=== PATIENT | male | born 1940 | race Caucasian/White ===

== ENCOUNTER 2020-10-14 08:02 | Outpatient (REF) | payer MEDICARE, OTHER, SELFPAY ==
[2020-10-14 10:14] LABS: MANUAL DIFF FLAG NO
[2020-10-14 10:18] LABS: Basophils Absolute Auto 0.1 X10*3/uL (0.0-0.2); Eosinophils Absolute Auto 0.2 X10*3/uL (0.0-0.4); Eosinophils Percent Auto 3.8 % (0-4); Hematocrit 40.3 % (42-52); Hemoglobin 13.8 g/dl (14.0-18.0); Imm Gran Abs Auto 0.03 X10*3/uL (0.00-0.03); Imm Gran Pct Auto 0.6 % (0.0-0.4); Lymphocytes Absolute Auto 1.2 X10*3/uL (1.2-4.9); Lymphocytes Percent Auto 22.3 % (20-40); Mean Corpuscular HGB Conc 34.2 g/dl (31.0-36.0); Mean Corpuscular Hemoglobin 32.7 pg (27.0-33.0); Mean Corpuscular Volume 95.5 fL (80-98); Mean Platelet Volume 10.1 fL (9.4-12.4); Monocytes Absolute Auto 0.6 X10*3/uL (0.1-1.2); Monocytes Percent Auto 10.7 % (2-11); Neutrophils Absolute Auto 3.2 X10*3/uL (2.0-8.3); Neutrophils Percent Auto 61.6 % (45-73); Platelet Count 209 X10*3/uL (160-400); Red Blood Count 4.22 X10*6/uL (4.60-5.80); Red Cell Distribution Width 12.7 % (11.0-16.0); White Blood Count 5.2 X10*3/uL (4.8-10.8)
[2020-10-14 10:44] LABS: Glucose Urine UA NEG (NEG); Leukocyte Esterase Urine NEG (NEG); Nitrite Urine NEG (NEG); PH 6.5 (5.0-8.0); Specific Gravity - Urine 1.025 (1.005-1.025); Urine Blood NEG (NEG); Urine Ketones NEG (NEG); Urine Protein NEG (NEG-TRACE)
[2020-10-14 10:49] LABS: Appearance Urine CLEAR; Color Urine YELLOW
[2020-10-14 10:54] LABS: Alanine Aminotransferase 25 U/L (0-40); Albumin Level 4.1 g/dL (3.5-5.0); Alkaline Phosphatase 140 U/L (39-117); Anion Gap 12 (12-20); Aspartate Amino Transferase 21 U/L (5-37); Bilirubin Total 0.7 mg/dL (0.0-1.0); Blood Urea Nitrogen 22 mg/dL (9-16); Calcium 8.5 mg/dL (8.4-10.2); Carbon Dioxide 29 mmol/L (22-29); Chloride 102 mmol/L (96-108); Cholesterol 177 mg/dL; Estimated Glomerular Filt Rate > 60; Glucose Fasting 89 mg/dL (60-99); HDL Cholesterol 45 mg/dL; LDL Cholesterol Calculated 116 mg/dl; Potassium 4.2 mmol/l (3.3-5.1); Sodium 139 mmol/L (135-145); Total Protein 6.4 g/dL (6.5-8.0); Triglycerides 81 mg/dL
[2020-10-14 11:15] LABS: Prostate Specific Antigen Scr 0.24 ng/mL (<0.05-4.0)
== END 2020-10-14 08:03 | disposition home or self-care (01) ==
LOC: HO.10HDL 08:02
PROVIDERS: Visit Provider Internal Medicine
DX: I10 Essential (primary) hypertension (principal); N40.0 Benign prostatic hyperplasia without lower urinary tract symptoms; K21.9 Gastro-esophageal reflux disease without esophagitis; D64.9 Anemia, unspecified; Z12.5 Encounter for screening for malignant neoplasm of prostate
CPT/HCPCS: 36415; 80053; 80061; 81003; 84153; 85025

== ENCOUNTER 2021-01-07 07:48 | Outpatient (REF) | payer MEDICARE, OTHER, SELFPAY ==
--- NOTE | ~2021-01-07 | XR_ITS ---
EXAMINATION: XR knee standing BI, XR knee RT 2V CLINICAL INFORMATION: Reason for Exam M25.561 - Pain in right knee COMPARISON: 2018 TECHNIQUE: Bilateral frontal standing, right lateral and patella sunrise view. FINDINGS: BONES: No fracture or dislocation is present. JOINTS: Narrowing of joint spaces and developed osteophytes from the edges of articular surfaces suggest degenerative osteoarthritis. 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 No joint effusion.
--- NOTE | ~2021-01-07 | XR_ITS ---
EXAMINATION: XR knee standing BI, XR knee RT 2V CLINICAL INFORMATION: Reason for Exam M25.561 - Pain in right knee COMPARISON: 2018 TECHNIQUE: Bilateral frontal standing, right lateral and patella sunrise view. FINDINGS: BONES: No fracture or dislocation is present. JOINTS: Narrowing of joint spaces and developed osteophytes from the edges of articular surfaces suggest degenerative osteoarthritis. 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 No joint effusion.
== END 2021-01-07 07:49 | disposition home or self-care (01) ==
LOC: HO.HOSX 07:48
PROVIDERS: Visit Provider Orthopaedic Surgery
DX: M22.2X1 Patellofemoral disorders, right knee (principal)
CPT/HCPCS: 20610; 73560; 73565; 99212; J1040

== ENCOUNTER 2021-04-25 10:41 | Outpatient (REF) | payer MEDICARE, OTHER, SELFPAY ==
[2021-04-25 11:37] LABS: MANUAL DIFF FLAG NO
[2021-04-25 11:48] LABS: Basophils Absolute Auto 0.1 X10*3/uL (0.0-0.2); Eosinophils Absolute Auto 0.2 X10*3/uL (0.0-0.4); Eosinophils Percent Auto 3.3 % (0-4); Hematocrit 40.5 % (42-52); Hemoglobin 13.6 g/dl (14.0-18.0); Imm Gran Abs Auto 0.01 X10*3/uL (0.00-0.03); Imm Gran Pct Auto 0.2 % (0.0-0.4); Lymphocytes Absolute Auto 1.3 X10*3/uL (1.2-4.9); Lymphocytes Percent Auto 25.2 % (20-40); Mean Corpuscular HGB Conc 33.6 g/dl (31.0-36.0); Mean Corpuscular Hemoglobin 31.8 pg (27.0-33.0); Mean Corpuscular Volume 94.6 fL (80-98); Mean Platelet Volume 10.4 fL (9.4-12.4); Monocytes Absolute Auto 0.6 X10*3/uL (0.1-1.2); Monocytes Percent Auto 11.6 % (2-11); Neutrophils Percent Auto 58.7 % (45-73); Platelet Count 221 X10*3/uL (160-400); Red Blood Count 4.28 X10*6/uL (4.60-5.80); Red Cell Distribution Width 13.1 % (11.0-16.0); White Blood Count 5.1 X10*3/uL (4.8-10.8)
[2021-04-25 12:57] LABS: Alanine Aminotransferase 17 U/L (0-40); Albumin Level 4.3 g/dL (3.5-5.0); Alkaline Phosphatase 136 U/L (39-117); Anion Gap 12 (12-20); Aspartate Amino Transferase 20 U/L (5-37); Bilirubin Total 0.8 mg/dL (0.0-1.0); Blood Urea Nitrogen 22 mg/dL (9-16); Calcium 9.3 mg/dL (8.4-10.2); Carbon Dioxide 28 mmol/L (22-29); Chloride 104 mmol/L (96-108); Estimated Glomerular Filt Rate > 60; Glucose Fasting 66 mg/dL (60-99); Potassium 4.4 mmol/L (3.3-5.1); Sodium 140 mmol/L (135-145); Total Protein 6.7 g/dL (6.5-8.0)
== END 2021-04-25 10:42 | disposition home or self-care (01) ==
LOC: HO.LAB 10:41
PROVIDERS: PCP Internal Medicine; Visit Provider Internal Medicine
DX: I10 Essential (primary) hypertension (principal); M81.0 Age-related osteoporosis without current pathological fracture
CPT/HCPCS: 36415; 80053; 85025

== ENCOUNTER 2021-10-27 09:50 | Outpatient (REF) | payer MEDICARE, OTHER, SELFPAY ==
[2021-10-27 10:35] LABS: MANUAL DIFF FLAG NO
[2021-10-27 10:43] LABS: Basophils Percent Auto 0.9 % (0-2); Eosinophils Absolute Auto 0.1 X10*3/uL (0.0-0.4); Eosinophils Percent Auto 2.6 % (0-4); Hematocrit 40.6 % (42.0-52.0); Hemoglobin 13.5 g/dl (14.0-18.0); Imm Gran Abs Auto 0.03 X10*3/uL (0.00-0.03); Imm Gran Pct Auto 0.6 % (0.0-0.4); Mean Corpuscular HGB Conc 33.3 g/dl (31.0-36.0); Mean Corpuscular Hemoglobin 32.1 pg (27.0-33.0); Mean Corpuscular Volume 96.7 fL (80.0-98.0); Mean Platelet Volume 10.6 fL (9.4-12.4); Monocytes Absolute Auto 0.5 X10*3/uL (0.1-1.2); Monocytes Percent Auto 10.6 % (2-11); Neutrophils Absolute Auto 2.9 x10*3/uL (2.0-8.3); Neutrophils Percent Auto 63.3 % (45-73); Platelet Count 189 X10*3/uL (160-400); White Blood Count 4.6 X10*3/uL (4.8-10.8)
[2021-10-27 11:05] LABS: Alanine Aminotransferase 19 U/L (0-40); Alkaline Phosphatase 161 U/L (39-117); Anion Gap 9 (12-20); Aspartate Amino Transferase 20 U/L (5-37); Bilirubin Total 0.7 mg/dL (0.0-1.0); Blood Urea Nitrogen 20 mg/dL (9-16); Calcium 9.1 mg/dL (8.4-10.2); Carbon Dioxide 30 mmol/L (22-29); Chloride 107 mmol/L (96-108); Cholesterol 147 mg/dL; Estimated Glomerular Filt Rate > 60; Glucose Random 78 mg/dL (60-115); Potassium 4.4 mmol/L (3.3-5.1); Sodium 142 mmol/L (135-145); Total Protein 6.3 g/dL (6.5-8.0)
[2021-10-27 11:32] LABS: Prostate Specific Antigen 0.21 ng/mL (<0.05-4.0)
== END 2021-10-27 09:51 | disposition home or self-care (01) ==
LOC: HO.10HDL 09:50
PROVIDERS: Visit Provider Internal Medicine
DX: I10 Essential (primary) hypertension (principal); K21.9 Gastro-esophageal reflux disease without esophagitis; R35.1 Nocturia; Z12.5 Encounter for screening for malignant neoplasm of prostate
CPT/HCPCS: 36415; 80053; 82465; 84153; 85025

== ENCOUNTER 2021-11-01 09:21 | Outpatient (REF) | payer MEDICARE, OTHER, SELFPAY ==
--- NOTE | ~2021-11-01 | XR_ITS ---
EXAMINATION: XR HIP, LEFT CLINICAL INFORMATION: Left hip pain. COMPARISON: None TECHNIQUE: AP and frog-leg lateral views of the left hip. FINDINGS: No fracture or malalignment. No aggressive osseous lesions are identified. Left hip joint appears relatively well-preserved. Pubic symphysis and SI joints are normal in appearance. Mild degenerative spondylosis in the lower lumbar spine. XR/XR hip LT min 2V IMPRESSION: No acute osseous findings in the left hip. Left hip joint appears relatively well-preserved without focal abnormalities correlate with the patient's symptoms.
== END 2021-11-01 09:22 | disposition home or self-care (01) ==
LOC: HO.XRAY 09:21
PROVIDERS: PCP Internal Medicine; Visit Provider Internal Medicine
DX: M25.552 Pain in left hip (principal)
CPT/HCPCS: 73502

== ENCOUNTER 2021-12-22 07:59 | Outpatient (REF) | payer MEDICARE, OTHER, SELFPAY ==
--- NOTE | ~2021-12-22 | CT_ITS ---
EXAMINATION: CT ABDOMEN AND PELVIS WITHOUT CONTRAST CLINICAL INFORMATION: Lower abdominal pain. Evaluate for hernia. COMPARISON: None TECHNIQUE: Multidetector volumetric imaging was performed from the superior aspect of the liver through the pubic symphysis. Sagittal and coronal reformatted images were obtained on the technologist's workstation. This CT examination was performed using dose optimization techniques as appropriate, variously including the following: *Automated exposure control *Adjustment of mA and/or kV according to patient size (this includes techniques or standardized protocols for targeted exams where dose is matched to indication/reason for exam; i.e. extremities or head) *Use of iterative reconstruction technique DLP: 493 mGy-cm FINDINGS: LUNG BASES: The visualized lung bases are unremarkable. LIVER, GALLBLADDER, AND BILIARY TREE: The liver is normal in size, shape, and attenuation. There is a 1 cm low-attenuation lesion in the lateral segment of the left lobe of the liver. There is no biliary duct dilatation. The gallbladder is unremarkable with no evidence of radiopaque gallstones, gallbladder wall thickening, or obvious pericholecystic inflammatory changes. PANCREAS: Unremarkable. SPLEEN: There are calcifications in the spleen suggestive of old granulomatous disease. ADRENAL GLANDS: Unremarkable. KIDNEYS AND URETERS: The kidneys are normal in size, shape, and attenuation. No hydronephrosis, hydroureter, or calculi seen. No perinephric stranding. BLADDER: Unremarkable. GASTROINTESTINAL TRACT: There is diverticulosis of the colon. The small and large bowel are otherwise unremarkable. The appendix is is not seen. There are no laboratory change is right lower quadrant. The stomach is normal. ABDOMINAL WALL: There is a left inguinal hernia containing fat. LYMPH NODES: Normal. VASCULAR: Unremarkable. PELVIC VISCERA: Unremarkable. OSSEOUS STRUCTURES: There is a 5 mm sclerotic density in the right inferior pubic ramus. CT/CT abdomen pelvis wo con IMPRESSION: Left inguinal hernia containing fat. Mild diverticulosis. No evidence of diverticulitis. 1 cm low-attenuation liver lesion. This is difficult to characterize due to size and lack of IV contrast. Calcifications in the spleen suggestive of old granulomatous disease. Fleischner guidelines were followed.
== END 2021-12-22 08:00 | disposition home or self-care (01) ==
LOC: HO.CT 07:59
PROVIDERS: Visit Provider Internal Medicine
DX: R10.32 Left lower quadrant pain (principal)
CPT/HCPCS: 74176

== ENCOUNTER → 2022-02-22 13:14 | Outpatient (BNVA) | payer MEDICARE, OTHER, SELFPAY | PROVIDERS: PCP Internal Medicine; Visit Provider Surgery | DX: K40.90 Unilateral inguinal hernia, without obstruction or gangrene, not specified as recurrent (principal) | CPT/HCPCS: 99212 ==

== ENCOUNTER → 2022-03-31 07:22 | Day surgery (SDC) | payer MEDICARE, OTHER, SELFPAY ==
--- NOTE | 2022-03-29 13:39 | HO.ANESPROP2 ---
HPI - Anesthesia Eval Consult details Narrative: HTN preop. Cx'd and instructed to f/u with PCP 81yo M for Left Hernia Repair Inguinal possible mesh PMFSH Active Problems Active Problems: All Active Problems (Updated 02/22/22 @ 13:52 by Aquiles Marcial MD) Left inguinal hernia (Acute) Hypertension (Acute) Patellofemoral pain syndrome of right knee (Acute) Past Medical History Medical History (Updated 03/29/22 @ 13:41 by Kiana Roque NP) GERD (gastroesophageal reflux disease) Hypertension Left inguinal hernia Lipoma of abdominal wall Lipoma of back Osteoarthritis Family History Family History Father CVD (cardiovascular disease) Mother CVD (cardiovascular disease) Hypertension Surgical History Surgical History H/O hernia repair History of appendectomy Hx of tonsillectomy Status post excision of lipoma Social History Social History Patient Tobacco Use Status: Never used Tobacco Second Hand Smoke Exposure: No Use of substances other than those prescribed or required for medical reasons: No Are you DNR?: No Advance Directives: No Advance Directives Information Provided: Yes Advance Directives on File: No Current occupational status: retired Current occupation: right handed Meds Allergies Allergy/AdvReac Type Severity Reaction Status Date / Time Penicillins [PENICILLINS] Allergy Intermediate RASH Verified 03/31/22 10:31 Home Medications Medication Instructions Recorded Confirmed Last Taken Type losartan 25 mg tablet 25 mg PO DAILY 01/07/21 02/22/22 Unknown History naproxen sodium 220 mg tablet 220 mg PO Q12H 01/07/21 02/22/22 Unknown History (Aleve) omeprazole 10 mg capsule,delayed 10 mg PO DAILY 01/07/21 02/22/22 Unknown History release Exam Exam Date and Time: March 29, 2022 1339 Pertinent Lab Results Pertinent Lab Results: Laboratory Tests 10/27/21 10/27/21 09:52 09:52 WBC 4.6 L Hgb 13.5 L Hct 40.6 L Plt Count 189 Sodium 142 Potassium 4.4 Chloride 107 Carbon Dioxide 30 H BUN 20 H Creatinine 1.01 Assessment and Plan Assessment Anesthesia Assessment: Chart Reviewed
[2022-03-31 08:28] VITALS: BMI 25.7
[2022-03-31 08:54] VITALS: BP 200/87; PULSE 52; RESP 16; TEMP 36.1; O2SAT 98
[2022-03-31] MEDS: Lactated Ringers 1,000 ML 100 ML IVCONT (09:30)
--- NOTE | 2022-03-31 09:51 | PC.NURSE ---
Addendum entered by Tapan Michel RN 03/31/22 13:20: pt medicated with Versed at 1030. BP decreased to 170-180's. pt BP noted to be elevated at 1315 back in the 200's. Dr. Hightower and Dr. Marcial at bedside. pt informed procedure will be cancelled today and to follow up with PCP concerning HTN. pt dressing. IV removed and intact. Original Note: pt BP elevated upon arrival, 213/80. BP taken multiple times, all reading SBP 200's. Dr. Hightower notified via [employer]. orders received to cycle Q15min BP.
--- NOTE | 2022-03-31 10:04 | PC.NURSE ---
pharmacy called to verify Cefazolin abx order as pt has listed allergy to pcn. verified reaction of rash with patient. Dr. Marcial aware and wants to proceed with Cefazolin 2gm IV preop.
--- NOTE | 2022-03-31 12:57 | MHC.SHP ---
Pre-Procedural Eval Section A Date of Service: 03/31/22 Section B Chief Complaint: hernia Details of Present Illness: Has a symptomatic eft inguinal hernia reducible Relevant Family History (Specify if Yes): No Relevant Social History: None Present Medications: see Short Stay Collaborative assessment Medical History: Significant History History of Previous Operations: No relevant previous surgery Allergies: Allergies Allergy/AdvReac Type Severity Reaction Status Date / Time Penicillins [PENICILLINS] Allergy Intermediate RASH Verified 03/31/22 10:31 Review of Systems Sugical H&P ROS: Negative: Constitution, Cardiovascular, Respiratory, Neurological, Psychiatric, Hem-Onc, Allergic/Immunologic, Gastrointestinal, Genitourinary, Musculoskeletal, Integumentary, Endocrine and Eyes/Ears/Nose/Throat Exam Surgical H&P Exam: Normal: HEENT, Normal: Heart, Normal: Lungs, Normal: Extremities, Normal: Skin and Normal: Neurological and Significant Findings: Abdomen (Left inguinal hernia, reducible) Plan I have reviewed the history and physical and performed a pertinent physical examination on my patient. No changes have occurred unless specified.
== END ==
PROVIDERS: PCP Internal Medicine; Visit Provider Surgery
DX: K40.90 Unilateral inguinal hernia, without obstruction or gangrene, not specified as recurrent (principal); Z53.09 Procedure and treatment not carried out because of other contraindication; I10 Essential (primary) hypertension
CPT/HCPCS: J0690

== ENCOUNTER 2022-04-25 08:28 | Day surgery (SDC) | payer MEDICARE, OTHER, SELFPAY ==
[2022-04-25] VITALS (9 sets, daily range): BP systolic 168–195; BP diastolic 79–94; PULSE 64–75; RESP 10–18; TEMP 36.2–36.9; O2SAT 95–99; BMI 25.7
--- NOTE | 2022-04-25 08:53 | MHC.SHP ---
Pre-Procedural Eval Section A Date of Service: 04/25/22 Section B Chief Complaint: hernia Details of Present Illness: Has reducible mass on the left groin Relevant Family History (Specify if Yes): No Relevant Social History: None Present Medications: see Short Stay Collaborative assessment Medical History: Significant History ( hypertension) Allergies: Allergies Allergy/AdvReac Type Severity Reaction Status Date / Time Penicillins [PENICILLINS] Allergy Intermediate RASH Verified 03/31/22 10:31 Review of Systems Sugical H&P ROS: Negative: Constitution, Cardiovascular, Respiratory, Neurological, Psychiatric, Hem-Onc, Allergic/Immunologic, Gastrointestinal, Genitourinary, Musculoskeletal, Integumentary, Endocrine and Eyes/Ears/Nose/Throat Exam Surgical H&P Exam: Normal: HEENT, Normal: Heart, Normal: Lungs, Normal: Extremities, Normal: Skin and Normal: Neurological and Significant Findings: Abdomen ( left inguinal hernia reducible) Plan Diagnosis/Plan: Unchanged I have reviewed the history and physical and performed a pertinent physical examination on my patient. No changes have occurred unless specified.
--- NOTE | 2022-04-25 09:01 | P.CONAN_ITS ---
[facility] Active Problems Active Problems: All Active Problems (Updated 03/29/22 @ 13:41 by Kiana Roque NP) Left inguinal hernia (Acute) Hypertension (Acute) Patellofemoral pain syndrome of right knee (Acute) Past Medical History Medical History (Updated 03/29/22 @ 13:41 by Kiana Roque NP) GERD (gastroesophageal reflux disease) Hypertension Left inguinal hernia Lipoma of abdominal wall Lipoma of back Osteoarthritis Family History Family History Father CVD (cardiovascular disease) Mother CVD (cardiovascular disease) Hypertension Family history of problems with anesthesia: No Surgical History Surgical History H/O hernia repair History of appendectomy Hx of tonsillectomy Status post excision of lipoma History of Problems with Anesthesia: No Social History Social History Patient Tobacco Use Status: Never used Tobacco Second Hand Smoke Exposure: No Use of substances other than those prescribed or required for medical reasons: No Are you DNR?: No Advance Directives: No Advance Directives Information Provided: Yes Advance Directives on File: No Current occupational status: retired Current occupation: right handed Meds Allergies Allergy/AdvReac Type Severity Reaction Status Date / Time Penicillins [PENICILLINS] Allergy Intermediate RASH Verified 03/31/22 10:31 Home Medications Medication Instructions Recorded Confirmed Last Taken Type losartan 25 mg tablet 25 mg PO DAILY 01/07/21 02/22/22 04/25/22 History naproxen sodium 220 mg tablet 220 mg PO Q12H 01/07/21 02/22/22 Unknown History (Aleve) omeprazole 10 mg capsule,delayed 10 mg PO DAILY 01/07/21 02/22/22 Unknown History release Exam Exam Date and Time: April 25, 2022900 Height,Weight and Vital Signs: Height 6 ft Weight 86.183 kg Last Vital Signs Temp 98.5 F 04/25/22 08:56 Pulse 65 04/25/22 08:56 Resp 16 04/25/22 08:56 BP 195/88 H 04/25/22 08:56 Pulse Ox 99 04/25/22 08:56 O2 Del Method 04/25/22 08:56 Airway Mallampati Class: II TM Dist: >3cm Neck ROM: Full Assessment and Plan Assessment Anesthesia Assessment: Anesthesia Plan Discussed and Chart Reviewed Final Anesthetic Review Family History of Problems with Anesthesia: No History of Problems with Anesthesia: No NPO: Yes ASA Class: II Final Preanesthetic Review: No Changes in Pt Med Stat, Meds/Allgs Chart Reviewed, Consent Obtained/Reviewed and Anes Risks/Benef Reviewed Patient Risk: Intermediate Procedure Risk: Intermediate Anesthetic Plan Anesthetic Plan: GA Disposition: Standard PACU
[2022-04-25] MEDS: Lactated Ringers 1,000 ML 100 ML IVCONT (09:17)
--- NOTE | 2022-04-25 11:06 | W.PM.OPN ---
Operative Note Operative Note Date of Service: 04/25/22 Narrative: Preop diagnosis: Left inguinal hernia Postop diagnosis: Left inguinal hernia, indirect Procedure: Repair of a left inguinal hernia with mesh Surgeon: Aquiles Marcial MD assistant fitness manager: MIGUEL Alexandra The patient is an 82-year-old male with a reducible mass on left groin consistent with left inguinal hernia. He understood the technique of repair with mesh. He was aware of the risks, benefits, and alternatives Was brought to the operating room placed supine under general anesthesia via endotracheal tube. The left groin was prepped and draped in the usual sterile fashion. A surgical time-out was done. The patient received cefazolin 2 g IV preoperatively. I infiltrated the planned line of incision with lidocaine 1%. I made a short incision on the skin along an imaginary line from the anterior superior iliac spine to the pubic ramus using blade 15. This carried down through the full-thickness of the skin subcutaneous fat with electrocautery until I was well lysed the final oblique aponeurosis. I bluntly dissected the external oblique aponeurosis to identify the external ring. Once this was achieved, I proceeded to then make an incision on the external oblique aponeurosis using blade 15. And extended this inferomedially to connect with the external ring. The inguinal canal was therefore entered. I applied hemostats to the divided edges of the aponeurosis. I bluntly dissected the underside of the aponeurosis to create a pocket for the mesh. I then proceeded to gently dissect the spermatic cord and its contents using my index finger until was able to pass a [place] drain around this. This [place] drain was used for retraction. I identified the vas deferens and accompanying vessels and these were protected during the rest of the dissection. Identified a containing hernia on the anteromedial aspect of the cord. The hernia sac was identified I proceeded to gently separate this from the rest of the cord contents until I was able to completely reduce this with the internal ring. This was therefore an indirect hernia. I reinforced the internal ring with the large size Prolene plug. The plug was secured with Prolene 2 sutures to shelving edge of the inguinal meant laterally, the internal oblique superiorly medially, using the inner leaves of the plug . I then reinforced the floor of the canal with a keyhole mesh. The tails of the mesh were passed around the cord at the level of the internal ring and were secured together with Prolene 2 sutures. I flattened the mesh on the floor of the canal. I secured this with Prolene to suture to shelving edge of the ligament laterally, the internal oblique superiorly medially as well as the pubic ramus inferomedially. I copiously irrigated. I observed for hemostasis. Once hemostasis was confirmed, I removed the [place] drain. I closed the oblique aponeurosis with a running Dexon 2-0 stitch to re-create the external ring. I reapposed the subcutaneous layer with Dexon 3-0 interrupted sutures. Skin closure was used with Dexon 4-0 subcuticular running stitch. The incision was infiltrated with Marcaine 0.5% for postop analgesia. Steri-Strips and dressings were applied. The procedure was completed The patient tolerated procedure well. There were no complication noted. Initial and final counts of sponges and instruments were correct. Estimated blood loss was about less than 10 cc . The patient was extubated without difficulty and transferred to the recovery room with stable vital signs.
[2022-04-25] MEDS: oxyCODONE HCl Immed Release 5 MG TABLET PO (12:14)
== END 2022-04-25 13:47 | disposition home or self-care (01) ==
PROVIDERS: PCP Internal Medicine; Visit Provider Surgery
PROC: (CPT 49505; principal; 2022-04-25 10:20)
DX: K40.90 Unilateral inguinal hernia, without obstruction or gangrene, not specified as recurrent (principal); I10 Essential (primary) hypertension; Z79.899 Other long term (current) drug therapy; Z88.0 Allergy status to penicillin
CPT/HCPCS: 49505; C1781; J0690; J1100; J2250; J2405; J2795; J3010

== ENCOUNTER → 2022-05-11 13:57 | Outpatient (BNVA) | payer MEDICARE, OTHER, SELFPAY | PROVIDERS: PCP Internal Medicine; Visit Provider Surgery | DX: K40.90 Unilateral inguinal hernia, without obstruction or gangrene, not specified as recurrent (principal) | CPT/HCPCS: 99212 ==

== ENCOUNTER → 2022-06-05 14:04 | Outpatient (BNVA) | payer MEDICARE, OTHER, SELFPAY | PROVIDERS: PCP Internal Medicine; Visit Provider Surgery | DX: Z09 Encounter for follow-up examination after completed treatment for conditions other than malignant neoplasm (principal); Z87.19 Personal history of other diseases of the digestive system | CPT/HCPCS: 99212 ==

== ENCOUNTER 2022-07-05 10:16 | Outpatient (REF) | payer MEDICARE, OTHER, SELFPAY ==
[2022-07-05 13:47] LABS: MANUAL DIFF FLAG NO
[2022-07-05 14:21] LABS: Basophils Absolute Auto 0.1 X10*3/uL (0.0-0.2); Basophils Percent Auto 1.2 % (0-2); Eosinophils Absolute Auto 0.2 X10*3/uL (0.0-0.4); Eosinophils Percent Auto 3.2 % (0-4); Hematocrit 40.7 % (42.0-52.0); Hemoglobin 13.9 g/dl (14.0-18.0); Imm Gran Abs Auto 0.02 X10*3/uL (0.00-0.03); Imm Gran Pct Auto 0.4 % (0.0-0.4); Lymphocytes Absolute Auto 1.1 X10*3/uL (1.2-4.9); Lymphocytes Percent Auto 22.7 % (20-40); Mean Corpuscular HGB Conc 34.2 g/dl (31.0-36.0); Mean Corpuscular Hemoglobin 32.9 pg (27.0-33.0); Mean Corpuscular Volume 96.4 fL (80.0-98.0); Mean Platelet Volume 10.4 fL (9.4-12.4); Monocytes Absolute Auto 0.5 X10*3/uL (0.1-1.2); Monocytes Percent Auto 10.4 % (2-11); Neutrophils Absolute Auto 3.1 x10*3/uL (2.0-8.3); Neutrophils Percent Auto 62.1 % (45-73); Platelet Count 191 X10*3/uL (160-400); Red Blood Count 4.22 X10*6/uL (4.60-5.80); Red Cell Distribution Width 12.7 % (11.0-16.0)
[2022-07-05 14:54] LABS: Alanine Aminotransferase 23 U/L (0-40); Albumin Level 4.2 g/dL (3.5-5.0); Alkaline Phosphatase 148 U/L (39-117); Anion Gap 15 (12-20); Aspartate Amino Transferase 19 U/L (5-37); Bilirubin Total 0.7 mg/dL (0.0-1.0); Blood Urea Nitrogen 23 mg/dL (9-16); Calcium 8.9 mg/dL (8.4-10.2); Carbon Dioxide 29 mmol/L (22-29); Chloride 103 mmol/L (96-108); Estimated Glomerular Filt Rate > 60; Glucose Random 67 mg/dL (60-115); Iron 84 mcg/dL (45-160); Percent Iron Saturation 29 % (15-50); Potassium 4.5 mmol/L (3.3-5.1); Sodium 142 mmol/L (135-145); Total Iron Binding Capacity 287 mcg/dL (228-428); Total Protein 6.4 g/dL (6.5-8.0); Unsaturated Iron Binding 203 ug/dL
== END 2022-07-05 10:17 | disposition home or self-care (01) ==
LOC: HO.10HDL 10:16
PROVIDERS: Visit Provider Internal Medicine
DX: I10 Essential (primary) hypertension (principal); E78.00 Pure hypercholesterolemia, unspecified; D64.9 Anemia, unspecified
CPT/HCPCS: 36415; 80053; 83540; 85025

== ENCOUNTER 2023-08-15 09:46 | Outpatient (REF) | payer MEDICARE, OTHER, SELFPAY ==
[2023-08-15 10:28] LABS: MANUAL DIFF FLAG NO
[2023-08-15 10:36] LABS: Basophils Absolute Auto 0.1 X10*3/uL (0.0-0.2); Basophils Percent Auto 1.1 % (0-2); Eosinophils Absolute Auto 0.1 X10*3/uL (0.0-0.4); Eosinophils Percent Auto 2.8 % (0-4); Hematocrit 40.2 % (42.0-52.0); Hemoglobin 13.9 g/dl (14.0-18.0); Imm Gran Abs Auto 0.03 X10*3/uL (0.00-0.03); Imm Gran Pct Auto 0.6 % (0.0-0.4); Lymphocytes Absolute Auto 1.1 X10*3/uL (1.2-4.9); Lymphocytes Percent Auto 23.3 % (20-40); Mean Corpuscular HGB Conc 34.6 g/dl (31.0-36.0); Mean Corpuscular Hemoglobin 32.6 pg (27.0-33.0); Mean Corpuscular Volume 94.4 fL (80.0-98.0); Mean Platelet Volume 10.2 fL (9.4-12.4); Monocytes Absolute Auto 0.5 X10*3/uL (0.1-1.2); Monocytes Percent Auto 9.7 % (2-11); Neutrophils Absolute Auto 2.9 x10*3/uL (2.0-8.3); Neutrophils Percent Auto 62.5 % (45-73); Platelet Count 187 X10*3/uL (160-400); Red Blood Count 4.26 X10*6/uL (4.60-5.80); Red Cell Distribution Width 12.6 % (11.0-16.0); White Blood Count 4.6 X10*3/uL (4.8-10.8)
[2023-08-15 10:44] LABS: Alanine Aminotransferase 18 U/L (0-40); Alkaline Phosphatase 146 U/L (39-117); Anion Gap 8 (12-20); Aspartate Amino Transferase 21 U/L (5-37); Bilirubin Total 0.6 mg/dL (0.0-1.0); Blood Urea Nitrogen 23 mg/dL (9-16); Calcium 8.8 mg/dL (8.4-10.2); Carbon Dioxide 30 mmol/L (22-29); Chloride 105 mmol/L (96-108); Cholesterol 162 mg/dL (<200); Estimated Glomerular Filt Rate > 60; Glucose Random 70 mg/dL (60-115); Potassium 4.4 mmol/L (3.3-5.1); Sodium 139 mmol/L (135-145); Total Protein 6.4 g/dL (6.5-8.0)
[2023-08-15 11:05] LABS: Prostate Specific Antigen Scr 0.29 ng/mL (<0.05-4.0)
== END 2023-08-15 09:47 | disposition home or self-care (01) ==
LOC: HO.10HDL 09:46
PROVIDERS: Visit Provider Internal Medicine
DX: Z12.5 Encounter for screening for malignant neoplasm of prostate (principal); I10 Essential (primary) hypertension; K21.9 Gastro-esophageal reflux disease without esophagitis; D64.9 Anemia, unspecified; R35.1 Nocturia
CPT/HCPCS: 36415; 80053; 82465; 84153; 85025

== ENCOUNTER 2023-11-23 12:25 | Outpatient (REF) | payer MEDICARE, OTHER, SELFPAY | END 2023-11-23 12:26 | disposition home or self-care (01) | LOC: HO.SH 12:25 | PROVIDERS: PCP Internal Medicine; Visit Provider Internal Medicine | DX: Z01.118 Encounter for examination of ears and hearing with other abnormal findings (principal); H90.A32 Mixed conductive and sensorineural hearing loss, unilateral, left ear with restricted hearing on the contralateral side | CPT/HCPCS: 92557 ==

== ENCOUNTER 2024-03-11 08:46 | Outpatient (REF) | payer MEDICARE, OTHER, SELFPAY ==
[2024-03-11 10:49] LABS: MANUAL DIFF FLAG NO
[2024-03-11 10:53] LABS: Basophils Absolute Auto 0.1 X10*3/uL (0.0-0.2); Eosinophils Absolute Auto 0.1 X10*3/uL (0.0-0.4); Eosinophils Percent Auto 2.7 % (0-4); Hemoglobin 14.2 g/dl (14.0-18.0); Imm Gran Abs Auto 0.02 X10*3/uL (0.00-0.03); Imm Gran Pct Auto 0.4 % (0.0-0.4); Mean Corpuscular HGB Conc 34.6 g/dl (31.0-36.0); Mean Corpuscular Volume 95.3 fL (80.0-98.0); Mean Platelet Volume 10.1 fL (9.4-12.4); Monocytes Absolute Auto 0.5 X10*3/uL (0.1-1.2); Monocytes Percent Auto 10.6 % (2-11); Neutrophils Absolute Auto 3.2 x10*3/uL (2.0-8.3); Neutrophils Percent Auto 64.3 % (45-73); Platelet Count 180 X10*3/uL (160-400); Red Cell Distribution Width 12.9 % (11.0-16.0); White Blood Count 4.9 X10*3/uL (4.8-10.8)
[2024-03-11 12:05] LABS: Alanine Aminotransferase 14 U/L (0-40); Albumin Level 4.2 g/dL (3.5-5.0); Alkaline Phosphatase 139 U/L (39-117); Anion Gap 10 (12-20); Aspartate Amino Transferase 18 U/L (5-37); Bilirubin Total 0.8 mg/dL (0.0-1.0); Blood Urea Nitrogen 24 mg/dL (9-16); Calcium 8.6 mg/dL (8.4-10.2); Carbon Dioxide 29 mmol/L (22-29); Chloride 106 mmol/L (96-108); Cholesterol 160 mg/dL (<200); Estimated Glomerular Filt Rate > 60; Glucose Fasting 89 mg/dL (60-99); HDL Cholesterol 49 mg/dL (>40); LDL Cholesterol Calculated 102 mg/dL (<100); Potassium 4.4 mmol/L (3.3-5.1); Sodium 141 mmol/L (135-145); Total Protein 6.7 g/dL (6.5-8.0); Triglycerides 49 mg/dL (<150)
== END 2024-03-11 08:47 | disposition home or self-care (01) ==
LOC: HO.10HDL 08:46
PROVIDERS: Visit Provider Internal Medicine
DX: I10 Essential (primary) hypertension (principal); K21.9 Gastro-esophageal reflux disease without esophagitis; R35.1 Nocturia; Z12.5 Encounter for screening for malignant neoplasm of prostate
CPT/HCPCS: 36415; 80053; 80061; 84153; 85025

== ENCOUNTER 2024-09-16 14:04 | Outpatient (REF) | payer MEDICARE, OTHER, SELFPAY ==
--- NOTE | ~2024-09-16 | US_ITS ---
EXAMINATION: US EXTRACRANIAL CAROTID DUPLEX, BILATERAL CLINICAL INFORMATION: Carotid bruit, pulsatile neck COMPARISON: None available. TECHNIQUE: Real-time ultrasound and Doppler techniques (integrating B-mode 2-D vascular images, Doppler spectral analysis and color-flow Doppler imaging) were utilized to interrogate the extracranial carotid arteries, the vertebral arteries and proximal subclavian arteries bilaterally. The degree of stenosis is determined by criteria similar to NASCET. FINDINGS: Right Side: 1. There is moderate atherosclerotic plaque seen in the bifurcation/proximal ICA region. 2. The common carotid artery PSV proximally is 97.5 cm/s and distally 114 cm/s. 3. The proximal internal carotid artery velocities are 179 cm/s systolic and 26.3 cm/s diastolic. Internal carotid artery is tortuous 4. The proximal external carotid artery PSV is 229 cm/s. 5. The vertebral artery shows antegrade flow. 6. The subclavian artery waveforms are normal. 7. 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 There is mild atherosclerotic plaque seen in the bifurcation/proximal ICA region. 2. The common carotid artery PSV proximally is 101 cm/s and distally 90.1 cm/s. 3. The proximal internal carotid artery velocities are 137 cm/s systolic and 25.1 cm/s diastolic. 4. The proximal external carotid artery PSV is 141 cm/s. 5. The vertebral artery shows antegrade flow. 6. The subclavian artery waveforms are normal. US/US carotid duplex BI IMPRESSION: 1. RIGHT: Moderate, hemodynamically significant stenosis of the proximal right internal carotid artery corresponding to a 50-79% stenosis by velocity criteria. Right carotid arteries are tortuous 2. LEFT: Moderate, hemodynamically significant stenosis of the proximal left internal carotid artery corresponding to a 50-79% stenosis by velocity criteria. Electronically signed by: Luis Fernando Ruelas MD 09/16/2024 02:52 PM [facility]
== END 2024-09-16 14:05 | disposition home or self-care (01) ==
LOC: HO.US 14:04
PROVIDERS: PCP Internal Medicine; Visit Provider Internal Medicine
DX: I65.23 Occlusion and stenosis of bilateral carotid arteries (principal); R22.1 Localized swelling, mass and lump, neck
CPT/HCPCS: 93880

== ENCOUNTER 2024-10-21 11:17 | Outpatient (AMB) | payer MEDICARE, OTHER, SELFPAY ==
[2024-10-21 11:29] VITALS: BMI 27.7
--- NOTE | 2024-10-21 11:29 | MHC.OFFVIS ---
Vital Signs 10/21/24 11:29 Height 6 ft Weight 204 lb BMI 27.7 Intake Visit Reasons: SOUND PERSON/Dr. Carvajal referral s/p carotid US 09/16/24 Intake Note: SOUND PERSON/Carotid stenosis referral s/p Carotid US 09/16/24 Accompanied by: Self / Same As Patient Allergies Penicillins [PENICILLINS] Allergy (Intermediate, Verified 10/21/24 11:33) RASH HPI HPI SOUND PERSON/Dr. Carvajal referral s/p carotid US 09/16/24: Details: Very pleasant 84-year-old gentleman presents for evaluation regarding carotid disease. The workup began as evaluation for pulsatile tinnitus. Of note he had hearing loss at a younger age secondary to a schwannoma. He has had this pulsatile tinnitus which has been of concern. Now presents to us for vascular evaluation regarding carotid disease. Of note he quit smoking about 30 years ago and at that time he was smoking about 4-5 cigarettes daily. He is a nondiabetic. In terms of his carotids he is asymptomatic denying any lateralizing signs or symptoms vision loss or speech disturbances. [facility] Medical History Osteoarthritis GERD (gastroesophageal reflux disease) Left inguinal hernia Hypertension Lipoma of back Lipoma of abdominal wall Surgical History History of left inguinal hernia repair (04/25/22) H/O hernia repair Status post excision of lipoma History of appendectomy Hx of tonsillectomy Family History Father CVD (cardiovascular disease) Mother CVD (cardiovascular disease) Hypertension Social History Patient Tobacco Use Status: Never used Tobacco Second Hand Smoke Exposure: No Current occupational status: retired Current occupation: right handed Review of Systems Const All systems reviewed & are unremarkable except as noted in HPI and below Reports no additional complaints ENT Reports Normal hearing present Card Denies chest pain, Denies chest pain at rest, Denies chest pain with activity and Denies pedal edema Resp Denies cough GI Denies abdominal pain Musc Denies abnormal gait, Denies muscle cramps and Denies radiating pain into limb Skin/Breast Denies skin ulcer and Denies wounds Neuro Reports Normal hearing present and Denies abnormal gait Psych Reports no additional complaints Physical Exam Vital Signs: BMI result Body Mass Index 27.7 Const General: cooperative, healthy appearing and comfortable Orientation/consciousness: oriented to person, oriented to place and oriented to time HEENT Head: Yes normal to inspection Neck Neck: Yes normal visual inspection Carotids: no bruits Chest Chest palpation & inspection: normal inspection of the chest Resp Effort & Inspection: normal respiratory effort and able to speak in complete sentences Auscultation: clear to auscultation bilaterally, no crackles, no rales, no rhonchi and no wheezes Cardio Rate: regular rate Rhythm: regular rhythm Heart sounds: S1 normal heart sound present and S2 normal heart sound present Bruits: no carotid bruits Peripheral pulses: Peripheral pulses 2+ throughout GI Inspection: Yes normal to inspection Skin Wounds: no wounds Hair: normal Neuro General: oriented to person, oriented to place and oriented to time Cranial nerves: Yes CN's II-XII intact bilaterally and Yes Normal hearing present Cognition (Neuro): normal cognition Motor exam (neuro): 5/5 motor strength present throughout Extrem Other: venous exam: No significant superficial varicosities or spider telangiectasias, minimal edema General: No clubbing, No cyanosis and No edema Psych Appearance: grossly normal Mental Status: mental status grossly normal Speech and movement: Normal speech and movement present Results Reviewed Results Reviewed: Carotid testing dated 09/16/2024 demonstrates bilateral 50-79% stenosis with a right peak systolic of 229 and the left peak systolic of 137. Written report and images were reviewed. Assessment & Plan Assessment & Plan (1) Bilateral carotid artery stenosis: Code(s): I65.23 - Occlusion and stenosis of bilateral carotid arteries Category: Medical Plan: In short patient has asymptomatic carotid disease. We have reviewed signs and symptoms of a stroke. We also discussed risk factor modification inclusive a healthy diet low in cholesterol. The patient will follow up with us with surveillance ultrasound of the carotids 1 year. Should there be any changes or signs or symptoms of a stroke we will be happy to see them back sooner. Thank you for allowing us to participate in this patient's care. If there are any questions or concerns please do not hesitate to contact us. (2) Pulsatile tinnitus: Code(s): H93.A9 - Pulsatile tinnitus, unspecified ear Category: Medical Plan: Would recommend re-evaluation by ENT especially in light of hearing loss and the prior history of schwannoma. Should this continue to be an issue and he is unable to get in to local ENT there is a pulsatile tinnitus clinic at [facility]. It may be worth a referral there as well. Orders: Orders US carotid duplex BI 1 Year I65.23 - Occlusion and stenosis of bilateral carotid arteries Coding Level of Care Code New Pt Level 4 (47615) Complex EM visit Add On G2211 Diagnoses Bilateral carotid artery stenosis I65.23 Pulsatile tinnitus H93.A9
--- OUTSIDE RECORDS SUMMARY | 2024-10-21 12:33 | XMS_ITS | Clinical Summary ---
Author Organization [facility] ity Address [address] [place] [address] Care Team Providers Care Biomedical Engineering Technologist Name Role Phone Unavailable Primary Care Provider Unavailabl e Social History Tobacco Use Types Packs/Day Years Used Date Smoking Tobacco: Never Assessed Sex and Gender Information Value Date Recorded Sex Assigned at Not on file Gender Identity Not on file Sexual Orientation Not on file Plan of Treatment Health Maintenance Due Date Last Done Comments DTaP,Tdap,and Td Vaccines (1 - Tdap) 1958 Zoster Vaccines (1 of 2) 1989 Pneumococcal Vaccine: 65+ Ye ars (1 of 1 - PCV) 2004 RSV Immunization Patients 60 + Years Old (1 - 1-dose 75+ series) 2014 COVID-19 Vaccine (2023-2 5 season) 2024 Influenza Vaccine (#1) 2024 HIB Vaccines Aged Out No longer eligi ble based on patient's age to complete this topic HPV Vaccines Aged Out No longer eligi ble based on patient's age to complete this topic Hepatitis A Vaccines Aged Out No long er eligible based on patient's age to complete this topic Hepatitis B Vaccines Aged Out No long er eligible based on patient's age to complete this topic IPV Vaccines Aged Out No longer eligi ble based on patient's age to complete this topic MMR Vaccines Aged Out No longer eligi ble based on patient's age to complete this topic Meningococcal ACWY Vaccine Aged Out N o longer eligible based on patient's age to complete this topic RSV Immunization Patients Un vance 20 months Aged Out No longer eligible b ased on patient's age to complete this topic Varicella Vaccines Aged Out No longer eligible based on patient's age to complete this topic
== END 2024-10-21 11:47 | disposition home or self-care (01) ==
PROVIDERS: PCP Internal Medicine; Visit Provider Surgery Vascular Surgery
DX: I65.23 Occlusion and stenosis of bilateral carotid arteries (principal); H93.A9 Pulsatile tinnitus, unspecified ear
CPT/HCPCS: 99204; G2211

== ENCOUNTER → 2024-10-21 11:17 | Outpatient (BNVA) | payer MEDICARE, OTHER, SELFPAY | PROVIDERS: PCP Internal Medicine; Visit Provider Surgery Vascular Surgery | DX: I65.23 Occlusion and stenosis of bilateral carotid arteries (principal); H93.A9 Pulsatile tinnitus, unspecified ear | CPT/HCPCS: 99202 ==

== ENCOUNTER 2024-12-15 15:05 | Outpatient (AMB) | payer MEDICARE, OTHER, SELFPAY ==
--- NOTE | 2024-12-15 15:07 | MHC.PC.OV ---
Vital Signs 12/15/24 15:08 Height 6 ft Weight 204 lb BMI 27.7 BP 148/92 H Respiration 14 Pulse 60 Pulse Source Pulse Oximeter Temp 97.7 F Temp Source Temporal Artery Scan Pulse Oximetry (%) 99 Oxygen Delivery Method Room Air Intake Visit Reasons: Routine Mate Relief Required: No Accompanied by: Self / Same As Patient Allergies Penicillins [PENICILLINS] Allergy (Intermediate, Verified 12/15/24 15:08) RASH Tobacco use date assessed: 12/15/24 Fall risk assessment: 1 Fall in past year Last assessed Fall Risk: 12/15/24 Dental Screening Dental Screen Date: 12/15/24 Did you have a dental visit in the last 12 months?: Yes Did you have a dental problem in the last 6 months where you did not have access to dental care?: No PFSH Medical History Osteoarthritis GERD (gastroesophageal reflux disease) Left inguinal hernia Hypertension Lipoma of back Lipoma of abdominal wall Surgical History History of left inguinal hernia repair (04/25/22) H/O hernia repair Status post excision of lipoma History of appendectomy Hx of tonsillectomy Family History Father CVD (cardiovascular disease) Mother CVD (cardiovascular disease) Hypertension Social History Housing: House Patient Tobacco Use Status: Former Tobacco user service: No Current occupational status: retired Current occupation: right handed Cognitive needs: No Hearing needs: No Vision needs: Yes (rx glasses) Questionnaire PHQ-9 Over the last 2 weeks, how often have you been bothered by any of the following problems? 1. Little interest or pleasure in doing things: not at all 2. Feeling down, depressed, or hopeless: not at all 3. Trouble falling or staying asleep, or sleeping too much: not at all 4. Feeling tired or having little energy: not at all 5. Poor appetite or overeating: not at all 6. Feeling bad about yourself - or that you are a failure or have let yourself or your family down: not at all 7. Trouble concentrating on things, such as reading the newspaper or watching television: not at all 8. Moving or speaking so slowly that other people could have noticed. Or the opposite - being so fidgety or restless that you have been moving around a lot more than usual: not at all 9. Thoughts that you would be better off or of hurting yourself in some way: not at all Total score: 0 Source: Developed by Drs. Rao Quesada, Aruna Deleon, Mark Fox and colleagues, with an educational dionicio from [employer]. Thrive Questionnaire Date Thrive assessed: 12/15/24 I am a: Patient Within the past 12 months, did the food you bought not last and you didn't have the money to get more?: Never true Within the past 12 months, did you worry whether your food would run out before you got money to buy more?: Never true Do you have trouble paying for medicines?: No Do you have trouble getting transportation to medical appointments?: No Do you have trouble paying your heating and electricity bill?: No Do you have trouble taking care of your child, family member or friend?: No Do you have trouble with day-to-day activities such as bathing, preparing meals, shopping, managing finances, etc.?: No Are you currently unemployed and looking for a job?: No Are you interested in more education?: No THRIVE Score: 0 AUDIT C Alcohol Use Questionnaire (AUDIT-C) 1. How often do you have a drink containing alcohol?: Never 3. How often do you have six or more drinks on one occasion?: Never Total Score: 0 APOORVA-7 AMB Questionnaire APOORVA-7 Date APOORVA - 7 assessed: 12/15/24 Feeling nervous, anxious, or on edge: 0 = Not at all Not being able to stop or control worryin = Not at all Worrying too much about different things: 0 = Not at all Trouble relaxin = Not at all Being so restless that it is hard to sit still: 0 = Not at all Becoming easily annoyed or irritable: 0 = Not at all Feeling afraid as if something awful might happen: 0 = Not at all Total APOORVA-7 score (0-4 normal; 5-9 mild; 10-14 moderate; 15-21 severe): 0 Source: Developed by Drs. Rao Quesada, Aruna Deleon, Mark Fox and colleagues, with an educational dionicio from [employer]. Physical exam (Primary Care) Vital Signs: Last Vital Signs Temp 97.7 F 12/15/24 15:08 Pulse 60 12/15/24 15:08 Resp 14 12/15/24 15:08 BP 148/92 H 12/15/24 15:08 Pulse Ox 99 12/15/24 15:08 Oxygen Delivery Method Room Air 12/15/24 15:08 BMI result Body Mass Index 27.7 Tobacco/Smoking Status: Tobacco use Status Tobacco use date assessed 12/15/24 12/15/24 15:10 Patient Tobacco Use Status Former Tobacco user 12/15/24 15:16 PHQ-9: PHQ-9 Score PHQ-9: Total score 0 12/15/24 15:21 Thrive Assessment: Date of Thrive Assessment Date Thrive assessed 12/15/24 12/15/24 15:10 Coding Level of Care Code New Pt Level 4 (03401) Complex EM visit Add On G2211 Diagnoses Hypertension I10 Assessment & Plan Assessment & Plan (1) Hypertension: Code(s): I10 - Essential (primary) hypertension Category: Medical Plan: BW ordered. Will call with the results of blood work Plan History of Present Illness The patient is an 84-year-old male presenting with hearing loss and symptoms of seasonal allergic rhinitis. He has experienced a persistent sensation of ear blockage, attributed to water retention, and ear canal pruritus. His ears were occasionally cleaned by a previous provider, which provided partial relief. For itchiness, he uses polymyxin and neomycin otic drops as needed. Systemic symptoms associated with seasonal allergies include sneezing and a runny nose; Flonase has been started to address these symptoms. He has a known history of a schwannoma, though specifics regarding its impact during this visit are not detailed. Social History - Lives with a brother and a nephew. 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 - Drives, including at night when necessary. Review of Systems - Ears, Nose & Throat: Reports sensation of ear blockage and pruritus. Using Flonase for seasonal allergies. - Musculoskeletal: Denies difficulty driving, including at night. Physical Exam General: Cooperative and healthy appearing Nutritional Appearance: Well nourished Orientation/consciousness: Patient oriented x3 Limitations: No limitations Head: Normal to inspection General: Appearance normal, both eyes and all related structures Neck: Normal visual inspection Chest: Normal palpation of entire chest wall Respiratory: Normal respiratory effort Neurology: Patient oriented x3 Results Plan I recommended regular ear cleaning to address the patient's hearing concerns and advised the continued use of polymyxin and neomycin otic drops for episodic ear itchiness. Seasonal allergic rhinitis will be managed with ongoing use of Fluticasone nasal spray. Monitoring for any developments related to the schwannoma will be conducted, although current symptoms do not suggest immediate intervention. A six-month follow-up is planned, and blood work will be done at the patient's convenience without pre-scheduling. Patient was informed and verbally consented to the use of an ambient scribe for clinic note documentation during this visit. Discussion Notes During our discussion, I explained the management strategy for hearing loss through regular ear cleaning and ear drops to alleviate the sensation of blocked ears and pruritus. I reassured using Fluticasone nasal spray for seasonal allergies as a safe and effective option. We agreed on the plan to conduct fasting blood work at a convenient time, emphasizing no need for a specific appointment. I also highlighted the importance of monitoring the schwannoma for any changes in symptoms. Patient Instructions - Schedule a regular ear cleaning session. - Continue using Fluticasone nasal spray as directed for allergies. - Use ear drops when experiencing pruritus. - Complete blood work fasting at the local lab as discussed. - Monitor for any new symptoms related to the schwannoma. - Return for follow-up in six months or sooner if issues arise. Orders: Orders Basic Metabolic Panel Today I10 - Essential (primary) hypertension Lipid Panel Today I10 - Essential (primary) hypertension Liver Panel Today I10 - Essential (primary) hypertension Complete Blood Count no Diff Today I10 - Essential (primary) hypertension Medications: New [id number] 3.5-10,000-1 mg/mL-unit/mL-% 4 drps otic (ears) Q8H 10 mL 0RF
[2024-12-15 15:08] VITALS: BP 148/92; PULSE 60; RESP 14; TEMP 36.5; O2SAT 99; BMI 27.7
--- OUTSIDE RECORDS SUMMARY | 2024-12-15 18:00 | XMS_ITS | Clinical Summary ---
Author Organization [facility] ity Address [address] [place] [address] Care Team Providers Care Electronics Technician Apprentice Name Role Phone Unavailable Primary Care Provider Unavailabl e Social History Tobacco Use Types Packs/Day Years Used Date Smoking Tobacco: Never Assessed Sex and Gender Information Value Date Recorded Sex Assigned at Not on file Legal Sex Male 1:52 PM EST Gender Identity Not on file Sexual Orientation Not on file Plan of Treatment Health Maintenance Due Date Last Done Comments DTaP,Tdap,and Td Vaccines (1 - Tdap) 1959 Pneumococcal Vaccine: 50+ Ye ars (1 of 1 - PCV) 1989 Zoster Vaccines (1 of 2) 1989 RSV Immunization Patients 60 + Years Old (1 - 1-dose 75+ series) 2014 COVID-19 Vaccine ( - 2023-2 5 season) 2024 Influenza Vaccine (#1) 2024 [...] patient's age to complete this topic Meningococcal B Vacine Aged Out No lo nger eligible based on patient's age to complete this topic RSV Immunization Patients Un vance 20 months Aged Out No longer eligible b ased on patient's age to complete this topic Varicella Vaccines Aged Out No longer eligible based on patient's age to complete this topic
== END 2024-12-15 15:43 | disposition home or self-care (01) ==
LOC: HO.HMCHD 15:05
PROVIDERS: PCP Internal Medicine; Visit Provider Internal Medicine
DX: I10 Essential (primary) hypertension (principal)

== ENCOUNTER → 2024-12-15 15:05 | Outpatient (BNVA) | payer MEDICARE, OTHER, SELFPAY | PROVIDERS: PCP Internal Medicine; Visit Provider Internal Medicine | DX: I10 Essential (primary) hypertension (principal) | CPT/HCPCS: 99202 ==

== ENCOUNTER 2024-12-23 09:02 | Outpatient (REF) | payer MEDICARE, OTHER, SELFPAY ==
--- OUTSIDE RECORDS SUMMARY | 2024-12-23 09:48 | XMS_ITS | Clinical Summary ---
Author Organization [facility] Address [address] [place] [address] Care Team Providers Care Prep Room Supervisor Name Role Phone Unavailable Primary Care Provider [...]
[2024-12-23 09:50] LABS: Hematocrit 40.5 % (42.0-52.0); Hemoglobin 14.3 g/dl (14.0-18.0); Mean Corpuscular HGB Conc 35.3 g/dl (31.0-36.0); Mean Corpuscular Hemoglobin 33.2 pg (27.0-33.0); Mean Platelet Volume 9.6 fL (9.4-12.4); Platelet Count 204 X10*3/uL (160-400); Red Blood Count 4.31 X10*6/uL (4.60-5.80); Red Cell Distribution Width 13.2 % (11.0-16.0)
[2024-12-23 10:02] LABS: Alanine Aminotransferase 18 U/L (0-40); Albumin Level 4.2 g/dL (3.5-5.0); Alkaline Phosphatase 150 U/L (39-117); Anion Gap 7 (12-20); Aspartate Amino Transferase 24 U/L (5-37); Bilirubin Direct 0.3 mg/dL (0.0-0.5); Bilirubin Total 0.8 mg/dL (0.0-1.0); Blood Urea Nitrogen 26 mg/dL (9-16); Calcium 9.1 mg/dL (8.4-10.2); Carbon Dioxide 30 mmol/L (22-29); Chloride 107 mmol/L (96-108); Cholesterol 166 mg/dL (<200); Estimated Glomerular Filt Rate > 60; Glucose Random 87 mg/dL (60-115); HDL Cholesterol 48 mg/dL (>40); LDL Cholesterol Calculated 105 mg/dL (<100); Potassium 4.4 mmol/L (3.3-5.1); Sodium 140 mmol/L (135-145); Total Protein 6.8 g/dL (6.5-8.0); Triglycerides 68 mg/dL (<150)
== END 2024-12-23 09:03 | disposition home or self-care (01) ==
LOC: HO.10HDL 09:02
PROVIDERS: Visit Provider Internal Medicine
DX: I10 Essential (primary) hypertension (principal)
CPT/HCPCS: 36415; 80048; 80061; 80076; 85027

== ENCOUNTER 2025-09-04 13:11 | Emergency (ER) | payer MEDICARE, OTHER, SELFPAY ==
[2025-09-04] VITALS (22 sets, daily range): BP systolic 133–253; BP diastolic 51–120; PULSE 50–82; RESP 12–20; TEMP 36.8–37.2; O2SAT 94–99; BMI 27.7; BMI 28.7
--- NOTE | ~2025-09-04 | CT_ITS ---
EXAMINATION: CT ANGIOGRAM CHEST CLINICAL INFORMATION: Severe chest pain. COMPARISON: None available. TECHNIQUE: Multiple axial images were obtained through the chest after the administration of 100 mL of Omnipaque 350 intravenous contrast. Extensive vascular post-processing including two-dimensional and three-dimensional reformatted images were created and reviewed on an independent workstation. This CT examination was performed using dose optimization techniques as appropriate, variously including the following: *Automated exposure control *Adjustment of mA and/or kV according to patient size (this includes techniques or standardized protocols for targeted exams where dose is matched to indication/reason for exam; i.e. extremities or head) *Use of iterative reconstruction technique DLP: 555 mGy-cm FINDINGS: Thoracic aorta demonstrates normal caliber and enhancement pattern without intimal flap or IV contrast extravasation. Calcified plaques in the thoracic aorta wall and its main branches. The brachiocephalic trunk is patent without abnormality. Left CCA is patent without focal stenosis or intimal flap. Left subclavian artery is patent without focal stenosis or intimal flap. V1/V2 segments are patent without focal stenosis. Left vertebral artery slightly dominant. Main pulmonary artery and its main left and right branches are patent. Ancillary findings: Patchy pulmonary groundglass nodule measuring 15 mm in the right upper lung lobe. Linear attenuation abnormalities in the right middle lung lobe. No pleural effusion. No pneumomediastinum. No hemothorax. No calcified pleural plaques. No honeycombing. No bronchiectasis. Nonspecific mildly prominent mediastinal lymph nodes. No pericardial effusion. Calcified plaques in the coronary. Calcified lymph nodes in the right anterior middle mediastinum. There is a 6 mm sclerotic lesion at left side of the vertebral body T9. No acute fracture or gross listhesis. No gross acute fracture. Hiatal hernia, small. CT/CT angio abdomen pelvis IMPRESSION: No thoracic aortic aneurysm or dissection. Atherosclerosis disease and coronary artery disease. Pulmonary groundglass nodule, right upper lung lobe. Consider inflammatory versus infectious versus neoplasm. Sclerotic lesion at T9 vertebra... Fleischner guidelines were followed. EXAMINATION: CT ANGIOGRAM ABDOMEN AND PELVIS CLINICAL INFORMATION: Severe chest pain. COMPARISON: Correlated to noncontrast CT abdomen pelvis dated December 22, 2021. TECHNIQUE: Multiple axial images were obtained through the abdomen and pelvis following the administration of 100 mL of Omnipaque 350 intravenous contrast. Images were reviewed on a dedicated 3-D workstation. This CT examination was performed using dose optimization techniques as appropriate, variously including the following: *Automated exposure control *Adjustment of mA and/or kV according to patient size (this includes techniques or standardized protocols for targeted exams where dose is matched to indication/reason for exam; i.e. extremities or head) *Use of iterative reconstruction technique DLP: 555 mGy-cm FINDINGS: The abdominal aorta demonstrates normal caliber with irregular shaped mixed plaques throughout the wall. There is a focal pseudoaneurysm at the 5:00 position of the distal abdominal aorta wall. No IV contrast extravasation. The mesenteric arteries are patent. The main renal arteries are patent without focal stenosis. The iliac arteries are patent without aneurysm or dissection. Mixed plaques. Ancillary findings: Fat-containing left inguinal hernia. No intestinal obstruction pattern. No pneumatosis intestinalis. No ascites. No pneumoperitoneum. No hydronephrosis or discrete renal mass. Small hiatal hernia. Gallbladder is nondistended. Normal sized liver and spleen. No peripancreatic fluid collections. Multilevel lumbar spondylosis pronounced at L4-5. No acute fracture or gross listhesis. Bony pelvis is intact. Coxofemoral joints are intact with normal alignment. 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 No aneurysm or dissection. Fleischner guidelines were followed. Electronically signed by: Miah Bledsoe MD 09/04/2025 02:36 PM [facility]
--- NOTE | 2025-09-04 13:26 | ED.GENADULT ---
HPI - General Adult General Chief complaint: Chest Pain Stated complaint: High Blood Pressure L Arm Pain Time Seen by Provider: 09/04/25 13:37 History of Present Illness ED Provider: Woo Lawton MD HPI narrative: 85-year-old male with a history of hypertension no known coronary disease says about 10:00 this morning he was walking his dog and developed chest pain some radiation to the neck and left arm lasted about a 1/2 hour resolved upon getting home and resting on the couch. He did not present to the hospital until about 13:15 immediately upon being handed his ECG from electronic calibration technician at about 1329 I felt he likely met STEMI criteria with AVR elevation diffuse ST depressions came to speak to the patient me these awake alert oriented very hard of hearing but looked comfortable. No active chest pain at this time Related Data Previous Rx's ?Medication ?Instructions ?Recorded aspirin 81 mg tablet,delayed 81 mg PO DAILY #90 tabs 06/22/25 release losartan 50 mg tablet 50 mg PO DAILY #90 tabs 06/22/25 omeprazole 20 mg capsule,delayed 20 mg PO QAM 90 days #90 caps 06/22/25 release Allergies Allergy/AdvReac Type Severity Reaction Status Date / Time Penicillins (PENICILLINS) Allergy Intermediate RASH Verified 09/04/25 13:32 [facility] Past Medical History Medical History (Updated 09/04/25 @ 14:58 by Woo Lawton MD) Allergic rhinitis Bilateral hearing loss Osteoarthritis GERD (gastroesophageal reflux disease) Left inguinal hernia Hypertension Lipoma of back Lipoma of abdominal wall Surgical History History of colonoscopy (~01/28/19) History of left inguinal hernia repair (04/25/22) H/O hernia repair Status post excision of lipoma History of appendectomy Hx of tonsillectomy Family History Family History (Updated 06/22/25 @ 09:42 by Paty Blair MA) Father CVD (cardiovascular disease) Mother CVD (cardiovascular disease) Hypertension Social History Social History Housing: House Patient Tobacco Use Status: Former Tobacco user e-Cigarette/Vaping Use: Former Use Advance Directives: Yes Advance Directives Information Provided: Yes Advance Directives on File: No Do you have a plan to hurt others: No Plan service: No Current occupational status: retired Current occupation: right handed Cognitive needs: No Hearing needs: No Vision needs: Yes (rx glasses) Physical Exam ED Exam Exam: Arrival BP 250/120. No active chest pain. EXAM: Gen: Alert, awake, well appearing, well hydrated. Hard of hearing comfortable looking Head: Atraumatic Eyes: Anicteric, Normal conjunctiva. ENT: Moist mucosa, no pallor. ? Neck: Supple. Skin: ?No observable rash or bruising on exposed or examined skin Respiratory: Breathing comfortably, No distress.Clear to auscultation bilaterally, symmetric chest expansion, No wheeze, rales, ronchi. Cardiovascular: Regular rate and rhythm. No murmurs or rub. Well perfused periphery, warm extremities. No edema. ? Abdominal: No focal tenderness. Soft, no objective distension. No palpable masses or obvious organomegaly. ?No guarding, no rebound tenderness or other peritoneal findings. : No flank tenderness. Neuro: Alert. Gross movement of all extremities intact. ? Psych: Calm. Cooperative. MSK: No grossly visible deformity. Vital signs: See flowsheet Vital Signs: Vital Signs - 24 hr 09/04/25 13:23 09/04/25 13:48 09/04/25 14:00 Temperature 98.2 F Pulse Rate 82 75 75 Respiratory Rate 20 12 Blood Pressure 253/120 H 225/95 H 219/102 H Pulse Oximetry 97 99 Oxygen Delivery Method Room Air Room Air 09/04/25 14:12 09/04/25 14:17 09/04/25 14:21 Temperature Pulse Rate 79 79 76 Respiratory Rate 13 19 Blood Pressure 219/102 H 208/101 H 170/86 H Pulse Oximetry 99 Oxygen Delivery Method Room Air 09/04/25 14:24 09/04/25 14:47 09/04/25 14:55 Temperature Pulse Rate 75 58 55 Respiratory Rate 13 20 Blood Pressure 174/84 H 223/106 H 197/81 H Pulse Oximetry 99 Oxygen Delivery Method Room Air 09/04/25 15:00 09/04/25 17:30 09/04/25 19:20 Temperature 99.0 F Pulse Rate 53 60 73 Respiratory Rate 12 Blood Pressure 206/83 H 167/75 H 164/76 H Pulse Oximetry 99 Oxygen Delivery Method Room Air 09/04/25 19:23 09/04/25 19:35 09/04/25 19:50 Temperature 98.7 F Pulse Rate 64 67 57 Respiratory Rate 13 Blood Pressure 165/80 H 160/80 H 160/80 H Pulse Oximetry 96 Oxygen Delivery Method Room Air 09/04/25 20:05 09/04/25 20:20 09/04/25 21:39 Temperature 98.4 F Pulse Rate 66 59 68 Respiratory Rate 17 Blood Pressure 175/79 H 165/75 H 133/51 L Pulse Oximetry 96 Oxygen Delivery Method Room Air 09/04/25 21:40 09/04/25 23:22 09/04/25 23:25 Temperature Pulse Rate 54 50 57 Respiratory Rate 18 Blood Pressure 133/51 L 175/61 H 175/61 H Pulse Oximetry 94 Oxygen Delivery Method Room Air 09/04/25 23:50 09/05/25 00:36 09/05/25 00:36 Temperature Pulse Rate 57 67 60 Respiratory Rate 14 Blood Pressure 154/74 H 203/77 H 203/77 H Pulse Oximetry 95 Oxygen Delivery Method Room Air 09/05/25 00:50 09/05/25 01:05 09/05/25 01:20 Temperature Pulse Rate 54 56 51 Respiratory Rate Blood Pressure 178/76 H 175/75 H 161/71 H Pulse Oximetry Oxygen Delivery Method 09/05/25 01:35 09/05/25 01:50 09/05/25 02:05 Temperature Pulse Rate 54 54 63 Respiratory Rate Blood Pressure 183/72 H 165/65 H 175/83 H Pulse Oximetry Oxygen Delivery Method 09/05/25 02:20 09/05/25 02:35 09/05/25 02:50 Temperature Pulse Rate 67 73 67 Respiratory Rate Blood Pressure 155/77 H 151/68 H 145/61 H Pulse Oximetry Oxygen Delivery Method 09/05/25 03:05 09/05/25 03:20 09/05/25 03:55 Temperature Pulse Rate 44 L 61 49 L Respiratory Rate Blood Pressure 159/57 H 162/60 H 174/58 H Pulse Oximetry Oxygen Delivery Method 09/05/25 04:35 09/05/25 04:50 09/05/25 05:05 Temperature Pulse Rate 49 L 54 64 Respiratory Rate Blood Pressure 159/65 H 170/76 H 168/62 H Pulse Oximetry Oxygen Delivery Method 09/05/25 05:21 09/05/25 05:35 09/05/25 05:50 Temperature Pulse Rate 66 61 61 Respiratory Rate Blood Pressure 164/30 H 167/38 H 168/60 H Pulse Oximetry Oxygen Delivery Method 09/05/25 05:54 Temperature 98.9 F Pulse Rate 69 Respiratory Rate 15 Blood Pressure 168/60 H Pulse Oximetry 96 Oxygen Delivery Method Room Air BMI result Body Mass Index 28.7 Course Course Course Narrative: Rapid medical examination performed in triage by Lynn Khan PA-C: Patient is an 85 year old assigned male at presenting to the emergency department with chest and arm pain with elevated blood pressure. Detailed physical exam and review of systems are deferred to the cipher expert. EKG, labs, imaging, swabs ordered. Patient placed back in the waiting room pending room availability and results. Reevaluation(s) Reevaluation #1: 2:16 PM 09/04/2025 (Dr. Woo Lawton): No dissection on my interpretation of the CTA BP still slightly elevated after scan 219/102. Repeat nitroglycerin and start drip. I will get another EKG to see if there was any improvement. Reevaluation #2: 4:36 PM 09/04/2025 (Dr. Woo Lawton): Case discussed with [facility] cardiology once again this time PCU covering attending . Agrees for transfer recommends nitroglycerin up to 40 and systolic of 150-160. 5:27 PM 09/04/2025 (Dr. Woo Lawton): Patient remained stable chest pain-free. Troponin is elevating they called from the lab 2nd 1 is 1000. Still waiting for a bed from [facility] before calling EMS for transfer Medications Administered Generic Name Dose Route Start Last Admin Trade Name Freq PRN Reason Stop Dose Admin Heparin Sodium (Porcine) 3,800 unit 09/04/25 14:58 09/04/25 22:08 Heparin Sodium,Porcine 5,000 Unit/Ml Vial 40 unit/kg (3800 unit) 3,800 unit IVPUSH Administration PROTOCOL BOLUS PRN 40 unit/kg - Heparin Protocol Protocol Nitroglycerin 100 mg in 250 mls @ 0 mls/hr 09/04/25 14:15 09/05/25 05:50 Nitroglycerin/D5w IVCONT 60 mcg/min .Q0M ZENOBIA 9 mls/hr Protocol Titration Per Protocol Heparin Sodium/Sodium Chloride 25,000 unit in 250 mls @ 0 mls/hr 09/04/25 15:00 09/05/25 05:33 Heparin Sodium,Porcine/1/2ns IVCONT 9.43 units/kg/hr .Q0M ZENOBIA 9.04 mls/hr Protocol Titration Per Protocol Discontinued Medications Generic Name Dose Route Start Last Admin Trade Name Freq PRN Reason Stop Dose Admin Aspirin 162 mg 09/04/25 13:35 09/04/25 14:12 Aspirin 81 Mg Tab.Chew PO 09/04/25 13:36 162 mg ONCE ONE Administration Atorvastatin Calcium 80 mg 09/04/25 13:35 09/04/25 14:15 Atorvastatin Calcium 80 Mg Tablet PO 09/04/25 13:36 80 mg ONCE ONE Administration Heparin Sodium (Porcine) 4,000 unit 09/04/25 13:36 09/04/25 14:15 Heparin Sodium,Porcine 5,000 Unit/Ml Vial IVPUSH 09/04/25 13:37 4,000 unit ONCE ONE Administration Heparin Sodium (Porcine) 4,000 unit 09/04/25 14:31 09/04/25 15:44 Heparin Sodium,Porcine 5,000 Unit/Ml Vial IVPUSH 09/04/25 14:32 Not Given ONCE ONE Labetalol HCl 10 mg 09/04/25 13:44 09/04/25 13:48 Labetalol Hcl 100 Mg/20 Ml Vial IVPUSH 09/04/25 13:45 10 mg ONCE ONE Administration Nitroglycerin 0.4 mg 09/04/25 13:44 09/04/25 14:12 Nitroglycerin 0.4 Mg Tab.Subl SUBLINGUAL 09/04/25 13:45 0.4 mg ONCE ONE Administration Ticagrelor 180 mg 09/04/25 13:35 09/04/25 14:14 Ticagrelor 90 Mg Tablet PO 09/04/25 13:36 180 mg ONCE ONE Administration Medical Decision Making Medical Decision Making [facility] Narrative: Medical Decision Makin-year-old male who arrived with resolved chest pain some residual left arm pain. Highly suspicious for exertional typical angina. No known coronary disease he does have history of hypertension. Initial BP 250s over 120s. No neurologic deficits or neurologic complaints on exam. Symmetric pulses. Heart rate 80s. Sinus rhythm initially ECG at 13:28 suggestive possibly of STEMI with AVR elevation diffuse significant ST depression. MS 188. QTC 436. Activated STEMI discussed with on-call interventional Dr. Estrada at [facility] given the severe high blood pressure they recommended trying to control the blood pressure in repeating as this could be demand ischemic changes and the fact that he had no central chest pain they felt thrombolysis not indicated but they will accept for transfer for catheterization. I myself would like to exclude dissection prior to providing any antiplatelets immediately after my discussion with Cardiology I have ordered nitroglycerin and labetalol repeat. Preliminary Favored Differential Diagnosis: ACS, dissection, pleuritis, pericarditis, hypertensive emergency. among additional considered etiologies Testing Interpreted Independently: ?See below for details Radiology or Lab testing Results Reviewed: ?See below for details Consults: ?[facility] Dr. Estrada interventional cardiology attending Independent Historians/External Chart Reviews: ?See below for details Social Determinants of Health Impacting MDM/Planning: ?See below for details Marissa Hurt MD 09/05/25 0641 I received a being off my shift sign-out from my colleague Dr. Reeves Overnight, patient had multiple episodes of bradycardia down to the 40s. However, the patient's blood pressure remained steady. Patient denied any chest pain or shortness of breath We called 3 times [facility] throughout the night, unfortunately, no beds are available at this time however, patient does have an accepting attending at [facility]. At this time, patient's blood pressure is 168/60, heart rate 69, respirations 15, oxygen saturation 96% on room air. Patient asymptomatic -for this morning, I ordered an EKG and a troponin. EKG at 07:00: Sinus bradycardia, T-wave inversion in lead 3, minimal ST segment depressions in the lateral leads, previously seen in the EKGs from last night. Troponin pending Sign-out given to my colleague Dr. Murphy Lab Data 09/05/25 06:02 09/04/25 13:43 Labs: Lab Results 09/04/25 09/04/25 09/04/25 Range/Units 13:43 13:44 15:35 WBC 6.9 5.8 (4.8-10.8) X10*3/uL RBC 4.51 L 4.02 L (4.60-5.80) X10*6/uL Hgb 14.5 13.0 L (14.0-18.0) g/dl Hct 42.8 38.5 L (42.0-52.0) % MCV 94.9 95.8 (80.0-98.0) fL MCH 32.2 32.3 (27.0-33.0) pg MCHC 33.9 33.8 (31.0-36.0) g/dl RDW 12.8 12.6 (11.0-16.0) % Plt Count 222 197 (160-400) X10*3/uL MPV 9.8 9.8 (9.4-12.4) fL Immature Gran % (Auto) 0.4 (0.0-0.4) % Neut % (Auto) 77.2 H (45-73) % Lymph % (Auto) 10.5 L (20-40) % [place] % (Auto) 10.5 (2-11) % Eos % (Auto) 1.0 (0-4) % Baso % (Auto) 0.4 (0-2) % Lymph # (Auto) 0.7 L (1.2-4.9) X10*3/uL [place] # (Auto) 0.7 (0.1-1.2) X10*3/uL Eos # (Auto) 0.1 (0.0-0.4) X10*3/uL Baso # (Auto) 0.0 (0.0-0.2) X10*3/uL Abs Immat Gran (auto) 0.03 (0.00-0.03) X10*3/uL Absolute Neuts (auto) 5.3 (2.0-8.3) x10*3/uL Absolute Nucleated RBC 0.000 0.000 (0.0-0.012) X10*3/uL Nucleated RBC % (auto) 0.0 0.0 (0.0-0.2) /100WBC PT 12.2 (11.2-13.5) SEC INR 1.0 (0.9-1.1) aPTT Heparin Protocol 68.7 (53-77.9) SEC Sodium 140 (135-145) mmol/L Potassium 4.0 (3.3-5.1) mmol/L Chloride 103 (96-108) mmol/L Carbon Dioxide 31 H (22-29) mmol/L Anion Gap 10 L (12-20) BUN 20 H (9-16) mg/dL Creatinine 1.05 (0.5-1.4) mg/dL Estim Creat Clear Calc 55.4 Estimated GFR > 60 Random Glucose 119 H (60-115) mg/dL Calcium 9.8 D (8.4-10.2) mg/dL Magnesium 2.4 (1.6-2.6) mg/dL Total Bilirubin 0.7 (0.0-1.0) mg/dL AST 46 H (5-37) U/L ALT 37 (0-40) U/L Alkaline Phosphatase 155 H (39-117) U/L Troponin I High Sens 427.0 H* (<3.5-35.0) ng/L NT-Pro-B Natriuret Pep Cancelled 2003.2 H Total Protein 7.5 (6.5-8.0) g/dL Albumin 4.8 (3.5-5.0) g/dL Influenza Type A (PCR) NEGATIVE (Negative) Influenza Type B (PCR) NEGATIVE (Negative) RSV RNA Qual (PCR) NEGATIVE (Negative) SARS-CoV-2 RNA (RT-PCR) NEGATIVE (Negative) 09/04/25 09/04/25 09/05/25 Range/Units 16:17 21:24 03:20 WBC (4.8-10.8) X10*3/uL RBC (4.60-5.80) X10*6/uL Hgb (14.0-18.0) g/dl Hct (42.0-52.0) % MCV (80.0-98.0) fL MCH (27.0-33.0) pg MCHC (31.0-36.0) g/dl RDW (11.0-16.0) % Plt Count (160-400) X10*3/uL MPV (9.4-12.4) fL Immature Gran % (Auto) (0.0-0.4) % Neut % (Auto) (45-73) % Lymph % (Auto) (20-40) % [place] % (Auto) (2-11) % Eos % (Auto) (0-4) % Baso % (Auto) (0-2) % Lymph # (Auto) (1.2-4.9) X10*3/uL [place] # (Auto) (0.1-1.2) X10*3/uL Eos # (Auto) (0.0-0.4) X10*3/uL Baso # (Auto) (0.0-0.2) X10*3/uL Abs Immat Gran (auto) (0.00-0.03) X10*3/uL Absolute Neuts (auto) (2.0-8.3) x10*3/uL Absolute Nucleated RBC (0.0-0.012) X10*3/uL Nucleated RBC % (auto) (0.0-0.2) /100WBC PT (11.2-13.5) SEC INR (0.9-1.1) aPTT Heparin Protocol 43.9 L D 102.7 H D (53-77.9) SEC Sodium (135-145) mmol/L Potassium (3.3-5.1) mmol/L Chloride (96-108) mmol/L Carbon Dioxide (22-29) mmol/L Anion Gap (12-20) BUN (9-16) mg/dL Creatinine (0.5-1.4) mg/dL Estim Creat Clear Calc Estimated GFR Random Glucose (60-115) mg/dL Calcium (8.4-10.2) mg/dL Magnesium (1.6-2.6) mg/dL Total Bilirubin (0.0-1.0) mg/dL AST (5-37) U/L ALT (0-40) U/L Alkaline Phosphatase (39-117) U/L Troponin I High Sens 1190.3 H* D (<3.5-35.0) ng/L NT-Pro-B Natriuret Pep Total Protein (6.5-8.0) g/dL Albumin (3.5-5.0) g/dL Influenza Type A (PCR) (Negative) Influenza Type B (PCR) (Negative) RSV RNA Qual (PCR) (Negative) SARS-CoV-2 RNA (RT-PCR) (Negative) 09/05/25 Range/Units 06:02 WBC 6.0 (4.8-10.8) X10*3/uL RBC 3.91 L (4.60-5.80) X10*6/uL Hgb 12.6 L (14.0-18.0) g/dl Hct 36.6 L (42.0-52.0) % MCV 93.6 (80.0-98.0) fL MCH 32.2 (27.0-33.0) pg MCHC 34.4 (31.0-36.0) g/dl RDW 12.5 (11.0-16.0) % Plt Count 187 (160-400) X10*3/uL MPV 9.5 (9.4-12.4) fL Immature Gran % (Auto) (0.0-0.4) % Neut % (Auto) (45-73) % Lymph % (Auto) (20-40) % [place] % (Auto) (2-11) % Eos % (Auto) (0-4) % Baso % (Auto) (0-2) % Lymph # (Auto) (1.2-4.9) X10*3/uL [place] # (Auto) (0.1-1.2) X10*3/uL Eos # (Auto) (0.0-0.4) X10*3/uL Baso # (Auto) (0.0-0.2) X10*3/uL Abs Immat Gran (auto) (0.00-0.03) X10*3/uL Absolute Neuts (auto) (2.0-8.3) x10*3/uL Absolute Nucleated RBC 0.000 (0.0-0.012) X10*3/uL Nucleated RBC % (auto) 0.0 (0.0-0.2) /100WBC PT 13.7 H (11.2-13.5) SEC INR 1.1 (0.9-1.1) aPTT Heparin Protocol (53-77.9) SEC Sodium (135-145) mmol/L Potassium (3.3-5.1) mmol/L Chloride (96-108) mmol/L Carbon Dioxide (22-29) mmol/L Anion Gap (12-20) BUN (9-16) mg/dL Creatinine (0.5-1.4) mg/dL Estim Creat Clear Calc Estimated GFR Random Glucose (60-115) mg/dL Calcium (8.4-10.2) mg/dL Magnesium (1.6-2.6) mg/dL Total Bilirubin (0.0-1.0) mg/dL AST (5-37) U/L ALT (0-40) U/L Alkaline Phosphatase (39-117) U/L Troponin I High Sens (<3.5-35.0) ng/L NT-Pro-B Natriuret Pep Total Protein (6.5-8.0) g/dL Albumin (3.5-5.0) g/dL Influenza Type A (PCR) (Negative) Influenza Type B (PCR) (Negative) RSV RNA Qual (PCR) (Negative) SARS-CoV-2 RNA (RT-PCR) (Negative) Critical Care Time Critical Care Time Critical Care Time: Yes Total Critical Care Time: 100 Attestation: ED Critical Care: Authorized and Performed by: Woo Lawton MD Total critical care time: Approximately 100 min Due to a high probability of clinically significant, life threatening deterioration, the patient required my highest level of preparedness to intervene emergently and I personally spent this critical care time directly and personally managing the patient. This critical care time included obtaining a history; examining the patient; pulse oximetry; ordering and review of studies; arranging urgent treatment with development of a management plan; evaluation of patient's response to treatment; frequent reassessment; and, discussions with other providers. This critical care time was performed to assess and manage the high probability of imminent, life-threatening deterioration that could result in multi-organ failure. It was exclusive of separately billable procedures and treating other patients and teaching time. Discharge Plan Discharge Clinical Impression: Chest pain, Lung nodule Patient Disposition: [facility] Transfer Details: ST depressions with AVR elevation not treated as a STEMI due to no active chest pain and severe hypertensive as possible etiology. Prescriptions: No Action aspirin 81 mg tablet,delayed release (DR/EC) 81 mg PO DAILY Qty: 90 0RF losartan 50 mg tablet 50 mg PO DAILY Qty: 90 1RF omeprazole 20 mg capsule,delayed release(DR/EC) 20 mg PO QAM 90 Days Qty: 90 1RF Print Language: Rw[place]an
--- NOTE | 2025-09-04 13:27 | ECG_ITS ---
Test Reason : cp Blood Pressure : */* mmHG Vent. Rate : 76 BPM Atrial Rate : 76 BPM P-R Int : 188 ms QRS Dur : 100 ms QT Int : 388 ms P-R-T Axes : 22 11 -4 degrees QTcB Int : 436 ms Normal sinus rhythm Marked ST abnormality, possible inferolateral subendocardial injury Abnormal ECG When compared with ECG of 26-Feb-2009 08:13, ST changes suggestive of ischemia is now present Referred By: Lynn Khan Electronically Signed By: JUAN JONES MD
[2025-09-04 13:50] LABS: MANUAL DIFF FLAG NO
[2025-09-04 13:52] LABS: Hematocrit 42.8 % (42.0-52.0); Hemoglobin 14.5 g/dl (14.0-18.0); Imm Gran Abs Auto 0.03 X10*3/uL (0.00-0.03); Imm Gran Pct Auto 0.4 % (0.0-0.4); Lymphocytes Absolute Auto 0.7 X10*3/uL (1.2-4.9); Mean Corpuscular HGB Conc 33.9 g/dl (31.0-36.0); Mean Corpuscular Hemoglobin 32.2 pg (27.0-33.0); Mean Corpuscular Volume 94.9 fL (80.0-98.0); NRBC Abs Auto 0.000 X10*3/uL (0.0-0.012); NRBC Pct Auto 0.0 /100WBC (0.0-0.2); Platelet Count 222 X10*3/uL (160-400); Red Blood Count 4.51 X10*6/uL (4.60-5.80); White Blood Count 6.9 X10*3/uL (4.8-10.8)
--- NOTE | 2025-09-04 14:05 | ECG_ITS ---
Test Reason : repeat CP Blood Pressure : */* mmHG Vent. Rate : 80 BPM Atrial Rate : 80 BPM P-R Int : 200 ms QRS Dur : 96 ms QT Int : 402 ms P-R-T Axes : 25 -3 -30 degrees QTcB Int : 463 ms Normal sinus rhythm Minimal voltage criteria for LVH, may be normal variant ( R in aVL ) Nonspecific ST and T wave abnormality Abnormal ECG When compared with ECG of 04-Sep-2025 13:28, ST less depressed in Lateral leads T wave inversion now evident in Inferior leads Referred By: Woo Lawton Electronically Signed By: JUAN JONES MD
[2025-09-04 14:11] LABS: Alanine Aminotransferase 37 U/L (0-40); Albumin Level 4.8 g/dL (3.5-5.0); Alkaline Phosphatase 155 U/L (39-117); Anion Gap 10 (12-20); Aspartate Amino Transferase 46 U/L (5-37); Blood Urea Nitrogen 20 mg/dL (9-16); Calcium 9.8 mg/dL (8.4-10.2); Carbon Dioxide 31 mmol/L (22-29); Chloride 103 mmol/L (96-108); Creatinine Clr Calc Pharmacy 55.4; Estimated Glomerular Filt Rate > 60; Magnesium 2.4 mg/dL (1.6-2.6); Potassium 4.0 mmol/L (3.3-5.1); Sodium 140 mmol/L (135-145); Total Protein 7.5 g/dL (6.5-8.0)
[2025-09-04 14:15] LABS: INTERNATIONAL NORM RATIO 1.0 (0.9-1.1); Prothrombin Time 12.2 SEC (11.2-13.5)
[2025-09-04 14:22] LABS: Troponin-I High Sensitivity 427.0 ng/L (<3.5-35.0)
[2025-09-04] MEDS: Nitroglycerin/D5W 100 MG/250 ML INFUS..BTL IVCONT (14:47)
[2025-09-04 15:08] LABS: Resp Syncy Virus RNA Qual PCR NEGATIVE (Negative); SARS COV2 PCR INHOUSE NEGATIVE (Negative)
[2025-09-04] MEDS: Heparin Sodium,Porcine/1/2NS 25,000 UNIT/250 ML IV.SOLN 10 UNIT IVCONT (15:22)
[2025-09-04 15:55] LABS: Hematocrit 38.5 % (42.0-52.0); Hemoglobin 13.0 g/dl (14.0-18.0); Mean Corpuscular HGB Conc 33.8 g/dl (31.0-36.0); Mean Corpuscular Hemoglobin 32.3 pg (27.0-33.0); Mean Corpuscular Volume 95.8 fL (80.0-98.0); NRBC Abs Auto 0.000 X10*3/uL (0.0-0.012); NRBC Pct Auto 0.0 /100WBC (0.0-0.2); Platelet Count 197 X10*3/uL (160-400); Red Blood Count 4.02 X10*6/uL (4.60-5.80); White Blood Count 5.8 X10*3/uL (4.8-10.8)
[2025-09-04 16:02] LABS: PTT Heparin Drip 68.7 SEC (53-77.9)
[2025-09-04 17:04] LABS: Troponin-I High Sensitivity 1190.3 ng/L (<3.5-35.0)
--- NOTE | 2025-09-04 18:13 | PC.NURSE ---
Pt is an 85yo male with hx of HTN who presented to ED for CP after walking his dog today. Pain radiated into his left arm and neck and resolved after 30min. On arrival to ED ECG obtained and showed AVR elevation with diffuse ST depressions. STEMI alert initiated and [facility] contacted, pending bed assignment prior to transport. Pt is hard of hearing but generally well looking. SBP>200 nitro gtt and heparin gtt started. 20gRAC and 20gLFA. Denies CP/SOB. Next PTT is 2130
--- NOTE | 2025-09-04 19:25 | PC.NURSE ---
assumed care for pt at this time. Pt in no notable distress, denies any pain at this time. VSS. call deshpande within reach. pt awaiting transport to [facility], plan of care ongoing at this time.
--- OUTSIDE RECORDS SUMMARY | 2025-09-04 19:31 | XMS_ITS | Clinical Summary ---
Author Organization [facility] Address [address] [place] [address] Care Team Providers Care Case Coordinator Name Role Phone Unavailable Primary Care Provider [...] Vaccines (1 of 2) 1989 RSV Immunization Adult Patie nts (1 - 1-dose 75+ series) 2014 Depression Screening 09/24/2024 COVID-19 Vaccine (1 - 2024-2 6 season) 2025 Influenza Vaccine (#1) 2025 HIB Vaccines Aged Out No longer eligi [...] age to complete this topic Meningococcal B Vaccine Aged Out No l onger eligible based on patient's age to complete this topic RSV Immunization Patients Un vance 20 months Aged Out No longer eligible b ased on patient's age to complete this topic Varicella Vaccines Aged Out No longer eligible based on patient's age to complete this topic
--- OUTSIDE RECORDS SUMMARY | 2025-09-04 19:31 | XMS_ITS | Clinical Summary ---
Author Organization Formerly [facility] Address [address] [place] [address] Care Team Providers Care Insurance Defense Paralegal Name Role Phone Danny Fernando MD Primary Care Provider + Allergies Active Allergy Reactions Criticality Noted Date Comments Penicillins Rash/Dermatitis High 02/14/2016 Medications OMEprazole (PriLOSEC) 20 MG capsule Take 20 mg by mouth every morning. 5 Active losartan (COZAAR) 50 MG tablet Take 50 mg by mouth daily. 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 regio n 07/27/2023 Finding of above normal blood pressure 3 Arthritis 11/29/2022 Disorder of pigmentation 10/05/2021 Other melanin hyperpigmentation 08/25/2020 Hemangioma of skin and subcutaneous tissue 08/25 Melanocytic nevi of scalp and neck 08/25/2020 Personal history of other malignant neoplasm of skin 08/25/2020 Hearing loss 06/20/2019 Melanocytic nevi of trunk 02/04/2018 Other specified health status 02/04/2018 Scar conditions and fibrosis of skin 06/07/2017 Basal cell carcinoma (BCC) of face 04/13/2016 Actinic keratosis 04/03/2016 Neoplasm of uncertain behavior of skin 6 Encounters Date Type Department Care Team Description 08/19/2025 11:30 AM EST Clinical Support [facility] [address] [phone] Celeste Weiss Au.D 08/19/2025 11:00 AM EST Office Visit [facility] [address] [phone] Pito Motley MD 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 (Primary Dx); Vestibular schwannoma (HCC) 08/12/2025 9:00 AM EST Clinical Support [facility] [address] [phone] Celeste Weiss Au.D Hearing aid consultation (Primary Dx) from Last 3 Months Immunizations Immunization Administration Dates Next Due Influenza Split 01/15/2017,01/03/2015 Pneumococcal Polysaccharide 23-Valent 06/05/2014 Family History Medical History Relation Name Comments Asthma Brother Heart disease Father Cancer Mother Relation Name Status Comments Brother Father Mother Social History Tobacco Use Types Packs/Day Years Used Date Smoking Tobacco: Former Cigarettes 0 Q uit: 09/24/1984 Passive Smoke Exposure: Never Smokeless Tobacco: Never Tobacco Cessation:Counseling Given: Not Answered Alcohol Use Standard Drinks/Week Comments Yes 0 (1 standard drink = 0.6 oz pur e alcohol) Sex and Gender Information Value Date Recorded Sex Assigned at Not on file Legal Sex Male 1:41 PM EDT Gender Identity Not on file Sexual Orientation Not on file Last Filed Vital Signs Vital Sign Reading Time Taken Comments Blood Pressure - - Pulse - - Temperature - - Respiratory Rate - - Oxygen Saturation - - Inhaled Oxygen Concentration - - Weight 88.9 kg (196 lb) 08/19/2025 10:53 AM EST Height 182.9 cm (6') 08/19/2025 10:53 AM EST Body Mass Index 26.58 08/19/2025 10:53 AM EST Plan of Treatment Upcoming Encounters Date Type Department Care Team (Late st Contact Info) Description 09/11/2025 1:00 PM EST Clinical Support [facility] [address], [place] [phone] Celeste Weiss Au.D [address] [place] [address] 02/18/2026 11:00 AM EDT Office Visit [facility] [address] [phone] Pito Motley MD [address] [phone] Health Maintenance Due Date Last Done Comments Advance Care Planning 1940 DTaP/Tdap/Td Vaccines (1 - Tdap) 1958 Zoster (Shingles) Vaccine (1 of 2) 1989 RSV Vaccine 50 years and older and Patients (1 - 1-dose 75+ series) 2014 Pneumococcal Vaccines 50+ (2 of 2 - PCV) 06/05/2015 06/05/2014 Influenza Vaccine 04/24/2025 01/15/2017, 01/03/2015 COVID-19 Vaccine (1 - 2024-2 6 season) 2025 Hepatitis B Vaccines Aged Out No long er eligible based on patient's age to complete this topic Insurance MEDICARE PART A & B [facility] SUPPLEMENT ONLY Care Teams Insurance Defense Paralegal Relationship Specialty Start Date End Date Danny Fernando MD [address] [place] [id number] PCP - General Internal Medicine 02/25/25
--- NOTE | 2025-09-04 20:04 | ECG_ITS ---
Test Reason : cp Blood Pressure : */* mmHG Vent. Rate : 57 BPM Atrial Rate : 57 BPM P-R Int : 180 ms QRS Dur : 92 ms QT Int : 464 ms P-R-T Axes : 21 -8 -19 degrees QTcB Int : 451 ms Sinus bradycardia Minimal voltage criteria for LVH, may be normal variant ( R in aVL ) Nonspecific ST abnormality Abnormal ECG When compared with ECG of 04-Sep-2025 14:14, No significant change was found Referred By: Woo Lawton Electronically Signed By: JUAN JONES MD
[2025-09-04 21:39] LABS: PTT Heparin Drip 43.9 SEC (53-77.9)
[2025-09-05] VITALS (30 sets, daily range): BP systolic 145–203; BP diastolic 30–86; PULSE 44–95; RESP 12–18; TEMP 36.8–37.2; O2SAT 95–97
--- NOTE | 2025-09-05 01:43 | PC.NURSE ---
Notified Dr Hurt of heart rate in the 30's
[2025-09-05 03:38] LABS: PTT Heparin Drip 102.7 SEC (53-77.9)
[2025-09-05 06:07] LABS: Hematocrit 36.6 % (42.0-52.0); Hemoglobin 12.6 g/dl (14.0-18.0); Mean Corpuscular HGB Conc 34.4 g/dl (31.0-36.0); Mean Corpuscular Hemoglobin 32.2 pg (27.0-33.0); Mean Corpuscular Volume 93.6 fL (80.0-98.0); NRBC Abs Auto 0.000 X10*3/uL (0.0-0.012); NRBC Pct Auto 0.0 /100WBC (0.0-0.2); Platelet Count 187 X10*3/uL (160-400); Red Blood Count 3.91 X10*6/uL (4.60-5.80); White Blood Count 6.0 X10*3/uL (4.8-10.8)
[2025-09-05 06:18] LABS: INTERNATIONAL NORM RATIO 1.1 (0.9-1.1); Prothrombin Time 13.7 SEC (11.2-13.5)
--- NOTE | 2025-09-05 06:55 | ECG_ITS ---
Test Reason : cp Blood Pressure : */* mmHG Vent. Rate : 52 BPM Atrial Rate : 52 BPM P-R Int : 182 ms QRS Dur : 94 ms QT Int : 470 ms P-R-T Axes : 20 -15 -49 degrees QTcB Int : 437 ms Sinus bradycardia Minimal voltage criteria for LVH, may be normal variant ( R in aVL ) Nonspecific ST and T wave abnormality Abnormal ECG When compared with ECG of 04-Sep-2025 20:22, Nonspecific T wave abnormality now evident in Lateral leads Referred By: Marissa Hurt Electronically Signed By: JUAN JONES MD
--- NOTE | 2025-09-05 08:50 | PC.NURSE ---
pt denies chest pain. Per Dr. Murphy, nitro gtt titrate to 40mcg/min and watch blood pressure
--- NOTE | 2025-09-05 09:52 | PC.NURSE ---
pt having episodes of bradycardia in the low 40s. Dr. Murphy notified. pt is asymptomatic. Per MD, continue to monitor, no interventions at this time
[2025-09-05 11:52] LABS: PTT Heparin Drip 51.5 SEC (53-77.9)
--- NOTE | 2025-09-05 12:36 | PC.NURSE ---
pt resting quietly, no complaints. he has no chest pain. uses urinal independently. switched to hospital bed. HR remains in 40s-50s at rest, mostly when sleeping. awake 50s-60s. heparin gtt titrated based on ptt HD 51.5. 40u/kg bolus and increased rate by 2. 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
--- NOTE | 2025-09-05 17:43 | PC.NURSE ---
report given to Nora ROCHA at [address]
[2025-09-05] MEDS: Heparin Sodium,Porcine/1/2NS 25,000 UNIT/250 ML IV.SOLN 10.96 UNIT IVCONT (17:49)
--- NOTE | 2025-09-05 18:45 | PC.NURSE ---
Addendum entered by Vane Magana RN 09/09/25 07:59: 10.047 ml of new bag of heparin infused prior to transfer, and 174.2ml nitroglycerine infused prior to transfer. Original Note: pt transferred to [facility] with [facility]. Heparin gtt and nitro gtt infusing during transfer
== END 2025-09-05 18:42 | disposition short-term general hospital (02) ==
PROVIDERS: Emergency Medicine; Physician Assistant Medical; Emergency Provider Emergency Medicine; PCP Physician Assistant Medical
DX: R07.9 Chest pain, unspecified (principal); R91.1 Solitary pulmonary nodule; I10 Essential (primary) hypertension; I65.23 Occlusion and stenosis of bilateral carotid arteries; Z87.891 Personal history of nicotine dependence; Z03.818 Encounter for observation for suspected exposure to other biological agents ruled out
CPT/HCPCS: 36415; 71275; 74174; 80053; 83735; 83880; 84484; 85025; 85027; 85610; 85730; 87637; 93005; 96365; 96366; 96375; 96376; 99285; 99291; 99292; J1644; J1920; J2305

== ENCOUNTER → 2025-09-04 13:27 | Outpatient (BNV) | payer MEDICARE, OTHER, SELFPAY | PROVIDERS: Emergency Provider Emergency Medicine; PCP Physician Assistant Medical; Visit Provider Internal Medicine Cardiovascular Disease | DX: R94.31 Abnormal electrocardiogram [ECG] [EKG] (principal); R07.9 Chest pain, unspecified | CPT/HCPCS: 93010 ==

== ENCOUNTER → 2025-09-04 13:44 | Outpatient (BNV) | payer MEDICARE, OTHER, SELFPAY | PROVIDERS: Emergency Provider Emergency Medicine; PCP Physician Assistant Medical; Visit Provider Radiology Diagnostic Radiology | DX: I71.43 Infrarenal abdominal aortic aneurysm, without rupture (principal); I25.10 Atherosclerotic heart disease of native coronary artery without angina pectoris; I70.0 Atherosclerosis of aorta; R91.1 Solitary pulmonary nodule | CPT/HCPCS: 71275; 74174 ==

== ENCOUNTER → 2025-09-05 06:55 | Outpatient (BNV) | payer MEDICARE, OTHER, SELFPAY | PROVIDERS: Emergency Provider Emergency Medicine; PCP Physician Assistant Medical; Visit Provider Internal Medicine Cardiovascular Disease | DX: R94.31 Abnormal electrocardiogram [ECG] [EKG] (principal); R07.9 Chest pain, unspecified | CPT/HCPCS: 93010 ==